=== PATIENT | female | born 1960 | race African-American/Black ===

== ENCOUNTER 2016-04-08 11:26 | Emergency (ER) | payer OTHER ==
[~2016-04-08] VITALS: Ht 170.2 cm; Wt 111.1 kg
[~2016-04-08 11:26] MED LIST: AMOX500C; ATEN25TA PO; ONDA8TAB8 PO; SIMV40TA2 PO; TYLENOL #3
[2016-04-08] MEDS ORDERED: predniSONE 20 MG TAB As Ordered ONE (14:12)
[2016-04-08] MEDS ORDERED: IPRATROPIUM 0.5MG/ALBUTEROL 2.5MG INH SOL UD 3ML (DUONEB)(J7620) As Ordered ONE ×2 (14:21→17:26)
[2016-04-08] MEDS ORDERED: ALBUTEROL SULFATE 2.5 MG/0.5 ML INH NEB SOLN As Ordered ONE (14:21)
[2016-04-08 14:46] LABS: BASO % 0.6 % (0.0-1.0); EOS # 1.5 K/mm3 (0.0-0.50); EOS % 18.4 % (0.0-3.0); LARGE UNSTAINED CELL # 0.2 K/mm3 (0.0-0.4); LARGE UNSTAINED CELL % 2.3 % (0.0-4.0); LYMPH # 2.1 K/mm3 (1.5-4.5); MEAN CORPUSCULAR HEMOGLOBIN 27.9 pg (27.0-33.0); MEAN CORPUSCULAR HGB CONC 30.3 g/dl (32.0-36.5); MEAN CORPUSCULAR VOLUME 92.1 fl (80.0-96.0); MONO # 0.3 K/mm3 (0.0-0.8); MONO % 4.3 % (0.0-5.0); NEUTROPHILS # 3.9 K/mm3 (1.8-7.7); NEUTROPHILS % 48.5 % (36.0-66.0); PLATELET COUNT, AUTOMATED 199 k/mm3 (150-450); RED CELL DISTRIBUTION WIDTH 12.6 % (11.5-14.5)
[2016-04-08 15:07] LABS: ANION GAP 8 MEQ/L (8-16); BLOOD UREA NITROGEN 10 MG/DL (7-18); CALCIUM LEVEL 9.8 MG/DL (8.5-10.1); CARBON DIOXIDE LEVEL 31 MEQ/L (21-32); CHLORIDE LEVEL 102 MEQ/L (98-107); CREATININE FOR GFR 0.91 MG/DL (0.55-1.02); GLOMERULAR FILTRATION RATE > 60.0 (>51); GLUCOSE, FASTING 97 MG/DL (70-105); POTASSIUM SERUM 4.3 MEQ/L (3.5-5.1); SODIUM LEVEL 141 MEQ/L (136-145)
[2016-04-08] MEDS ORDERED: ISOVUE-370 76% 100ML VIAL (Q9967) As Ordered ONE (15:48)
--- NOTE | 2016-04-08 17:35 | REP ---
PA and lateral chest: Comparison is the portable chest of 09/22/2013. There are skin markers anteriorly of uncertain significance, unchanged from the prior study. There are surgical clips in the right axilla. These are unchanged. There is focal interstitial coarsening inferiorly in the right lung, not present previously. This could represent an ensuing infiltrate. No other infiltrates are identified. No pleural effusions. Cardiac size is normal. The quentin, mediastinum, bony thorax unremarkable. Impression: Focal interstitial coarsening inferiorly in the right lung. Bilateral anterior chest wall skin markers. Surgical clips in the right axilla. Signed by Ag Loya MD 04/08/2016 05:26 P
--- NOTE | 2016-04-08 17:40 | REP ---
Bilateral lower extremity deep vein duplex ultrasound: The deep veins demonstrate normal compression, normal Doppler color flow and normal Doppler waveforms with respiration and augmentation at multiple levels from the popliteal veins to the common femoral veins bilaterally. Impression: There is no deep vein thrombus on the right on the left. Signed by Ag Loya MD 04/08/2016 05:31 P
[2016-04-08] MEDS ORDERED: MAGNESIUM SULFATE 1GM/2ML (8MEQ/2ML) VIAL (J3475) IM ONE (18:00)
[2016-04-08] MEDS ORDERED: AZITHROMYCIN 250 MG TAB As Ordered ONE (19:47)
--- NOTE | 2016-04-08 19:58 | EDDOCDS ---
Physician Documentation [facility] Name: Nancy Ortiz Age: 55 yrs Sex: Female : 1960 Arrival Date: 04/08/2016 Time: 11:26 Bed I8 / 16 Private MD: Tanya Kemp A Disposition: 04/08/16 19:26 Discharged to Home/Self Care. Impression: Pneumonia, unspecified organism, Moderate persistent asthma with (acute) exacerbation. - Condition is Stable. - Discharge Instructions: Asthma, Adult, Pneumonia, Adult. - Prescriptions for Prednisone 20 mg Oral Tablet - take 3 tablet by ORAL route once daily for 5 days; 15 tablet. Zithromax 250 mg Oral Tablet - take 1 tablet by ORAL route once daily start tomorrow; 4 tablet. - Work Release Form - 2 day, Medication Reconciliation, Local Pharmacy Hours form. - Follow up: Tanya Kemp; When: Call to arrange an appointment; Reason: Recheck today's complaints, Continuance of care. - Problem is new. - Symptoms have improved. - Notes: Keep hydrated Return to the ED for worsening shortness of breath, fever or chest pain Historical: - Allergies: no known allergies; - Home Meds: 1. Simvastatin Unknown Oral once daily 2. Atenolol Unknown Oral once daily 3. Ventolin HFA 90 mcg/actuation Nebulizer HFAA 2 puffs every 4-6 hours prn 4. meloxicam 7.5 mg oral tab prn - PMHx: Arthritis; Asthma; Hypercholesterolemia; Hypertension; breast cancer; - PSHx: breast reconstruction bilateral; infusaport insertion and removal; Colonoscopy; - Social history: Smoking status: Patient states was never smoker of tobacco. No barriers to communication noted, The patient speaks fluent Djib[place]ian, Speaks appropriately for age. - Family history: Not pertinent. - : The pt / caregiver states he / she is not on anticoagulants. Home medication list is obtained from the patient. - Exposure Risk Screening:: None identified. 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 7 in. (170.18 cm) (R); Pain 0/10; 15:00 BP 153 / 71; Pulse 85; Resp 18; Temp 97.7; Pulse Ox 97% ; Pain 0/10; jam1 16:50 BP 140 / 68; Pulse 84; Resp 20; Temp 98.7; Pulse Ox 99% ; Pain 0/10; jam1 19:45 BP 134 / 69; Pulse 100; Resp 20; Temp 97.3; Pulse Ox 94% ; ajs 11:28 Body Mass Index 38.37 (111.13 kg, 170.18 cm) elp MDM: 14:05 Albuterol 5 mg Nebulizer once ordered. le 14:05 Albuterol-Ipratropium 3 ml Inhalation once ordered. le 14:05 Call Respiratory ordered. le 14:05 predniSONE 60 mg PO once; administer with food or milk ordered. le 14:06 D-Dimer Quant Ordered. EDMS 14:06 CBC with Diff Ordered. EDMS 14:06 BMP Ordered. EDMS 14:08 Call Respiratory complete. kpj 15:32 Financial registration complete. gjb 15:39 [facility] Payment Agreement was scanned into [employer] and attached to record. gjb 15:45 D-Dimer Quant Reviewed. le 15:45 CBC with Diff Reviewed. le 15:45 BMP Reviewed. le 16:42 Chest, 2 View (pa\E\lat) Ordered. EDMS 16:51 Duplex, Ext LOWER veins, bilat Ordered. EDMS 17:20 Albuterol-Ipratropium 3 ml Inhalation once ordered. le 17:20 Magnesium Sulfate 2 grams IM once ordered. le 17:20 Vital Signs ordered. le 17:21 REGULAR+DIET ordered. EDMS 19:21 Duplex, Ext LOWER veins, bilat Reviewed. le 19:22 Chest, 2 View (pa\E\lat) Reviewed. le 19:25 azithromycin 500 mg PO once ordered. le Administered Medications: 14:15 Drug: predniSONE 60 mg [prednisone 20 mg tablet (3 tabs)] Route: PO; [facility] 14:22 Drug: Albuterol 5 mg [albuterol sulfate 2.5 mg/0.5 mL solution for nebulization (1 mL)] ac1 Route: Nebulizer; 14:28 Follow up: wheese bilat on insp. and exp. ac1 14:28 Drug: Albuterol-Ipratropium 3 ml [ipratropium-albuterol 0.5 mg-3 mg(2.5 mg base)/3 mL ac1 nebulization soln (3 mL)] Route: Inhalation; 14:33 Follow up: insp,exp wheezes bilat ac1 17:26 Drug: Albuterol-Ipratropium 3 ml [ipratropium-albuterol 0.5 mg-3 mg(2.5 mg base)/3 mL ac1 nebulization soln (3 mL)] Route: Inhalation; 17:34 Follow up: sxp wheezes bilat ac1 18:26 Drug: Magnesium Sulfate 2 grams [magnesium sulfate 4 mEq/mL (50 %) injection syringe (2 mcp grams)] Route: IM; Site: left gluteus; 19:55 Drug: azithromycin 500 mg [azithromycin 250 mg tablet (2 tabs)] Route: PO; cz Signatures: Dispatcher [employer] EDTanya Martin RN RN kpj Michelson, Staci, RN RN srm Zecher, Calvin, RN RN cz Westcott, Lisa, Sandra Nelson Mary RN mcp Cowles, Ammy RT ac1 The chart was reviewed and I authenticate all verbal orders and agree with the evaluation and treatment provided.Corrections: (The following items were deleted from the chart) 16:42 15:45 IV Saline Lock ordered. scarlet cronin 16:51 16:42 Duplex, Ext,LOWER veins,unilat+US ordered. EDMS EDMS 16:55 15:46 CT ANGIO CHEST+CT ordered. EDMS EDMS Attachments: 15:39 [facility] Payment Agreement [facility]
--- NOTE | 2016-04-08 19:58 | EDDOCDS ---
Nurse's Notes [facility] Name: Nancy Ortiz Age: 55 yrs Sex: Female : 1960 Arrival Date: 04/08/2016 Time: 11:26 Bed I8 / 16 Private MD: Tanya Kemp A Diagnosis: Pneumonia, unspecified organism;Moderate persistent asthma with (acute) exacerbation Presentation: 04/08 11:30 Adult Sepsis Screening: The patient does not have new or worsening altered mentation. srm Patient's respiratory rate is less than 22. Systolic blood pressure is greater than 100. Patient has a qSOFA score of 0- Negative Sepsis Screen. Suicide/Homicide risk assessment- the patient denies having any suicidal and/or homicidal ideations and does not present with any other emotional, behavioral or mental health complaints. Status: Patient is not a transportation services representative or dependent. Transition of care: Patient was received from [facility]. 11:30 Acuity: GOMEZ Level 4 [facility] 11:30 Method Of Arrival: Walkin/Carried/Asstd [facility] Triage Assessment: 11:34 General: Appears in no apparent distress, Behavior is appropriate for age, cooperative. [facility] Pain: Denies pain. 11:34 HIV screening NA for this visit Offered previously. 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 Simvastatin Unknown Oral once daily 2. Atenolol Unknown Oral once daily 3. Ventolin HFA 90 mcg/actuation Nebulizer HFAA 2 puffs every 4-6 hours prn 4. meloxicam 7.5 mg oral tab prn - PMHx: Arthritis; Asthma; Hypercholesterolemia; Hypertension; breast cancer; - PSHx: breast reconstruction bilateral; infusaport insertion and removal; Colonoscopy; - Social history: Smoking status: Patient states was never smoker of tobacco. No barriers to communication noted, The patient speaks fluent Guamanian, Speaks appropriately for age. - Family history: Not pertinent. - : The pt / caregiver states he / she is not on anticoagulants. Home medication list is obtained from the patient. - Exposure Risk Screening:: None identified. Screenin:50 Screening information is obtained from the patient. Fall risk: No risks identified. [facility] Assistance ADL's: requires no assistance with activities of daily living. Abuse/DV Screen: The patient / caregiver reports he/she is: not in a situation that causes fear, pain or injury. Nutritional screening: No deficits noted. Advance Directives: Currently, there is no health care proxy. There is no active DNR order. There is no living will. There is no Power of Supervisor Of Operations. Advance directive information has not previously been placed in an [facility] medical record. Further advance directive information is declined. home support is adequate. Assessment: 13:50 General: Appears uncomfortable, well nourished, well groomed, Behavior is appropriate [facility] for age, pleasant. Pain: Denies pain. Neurological: Level of Consciousness is awake, alert, Oriented to person, place, time. EENT: Oral mucosa is dry. lips dry. Cardiovascular: Chest pain is denied. Respiratory: Airway is patent Respiratory effort is labored, shallow, Respiratory pattern is regular, symmetrical, Sputum is thick, clear Breath sounds with wheezes inspiratory expiratory bilaterally. the patient has mild shortness of breath. Derm: Skin is pink, warm & dry. 15:00 General: Appears comfortable, Behavior is appropriate for age. General: HOB elevated kpj lights dimmed. Pain: Denies pain. Respiratory: Airway is patent Respiratory effort is even, unlabored, Respiratory pattern is regular, symmetrical, Breath sounds with wheezes inspiratory expiratory bilaterally. pt states feeling better, denies chest pain. 16:00 General: Appears comfortable, Behavior is appropriate for age, pleasant. Pain: Denies j pain. Neurological: Level of Consciousness is awake, alert, Oriented to person, place, time. Cardiovascular: Chest pain is denied. Respiratory: Airway is patent Respiratory effort is even, unlabored, Breath sounds with wheezes inspiratory expiratory bilaterally. Reports cough that is white phlegm. Derm: Skin is pink, warm & dry. 17:10 General: Appears comfortable, Behavior is appropriate for age, pleasant, Reports she is kpj hungry. Pain: Denies pain. Neurological: Level of Consciousness is awake, alert, Oriented to person, place, time. EENT: Oral mucosa is dry. lips dry. Cardiovascular: Chest pain is denied. Respiratory: Airway is patent Respiratory effort is even, unlabored, Respiratory pattern is regular, speech not interrupted with respiratory effort. Breath sounds with wheezes inspiratory expiratory moving more air. Derm: Skin is pink, warm & dry. 18:00 Reassessment: Patient appears in no apparent distress at this time. Patient states kpj feeling better. Patient states symptoms have improved. General: Appears comfortable. Derm: Skin is pink, warm & dry. 19:07 General: Appears in no apparent distress, comfortable. Cardiovascular: Chest pain is kpj denied. Respiratory: Breath sounds with wheezes inspiratory expiratory bilaterally. 19:18 General: Appears in no apparent distress, comfortable, Behavior is appropriate for age, ttb cooperative, pleasant. Pain: Denies pain. Neurological: Level of Consciousness is awake, alert, Oriented to person, place, time. Cardiovascular: Heart tones S1 S2 present Chest pain is denied. Respiratory: Airway is patent Respiratory effort is even, unlabored, Respiratory pattern is regular, symmetrical, Breath sounds with wheezes inspiratory expiratory bilaterally. pt states very improved since arrival. the patient has mild shortness of breath Denies shortness of breath. GI: Denies nausea, vomiting, pain. Derm: Skin is normal. Vital Signs: 11:28 BP 156 / 70; Pulse 74; Resp 20; Temp 98.9(O); Pulse Ox 98% on R/A; Weight 111.13 kg elp (R); Height 5 ft. 7 in. (170.18 cm) (R); Pain 0/10; 15:00 BP 153 / 71; Pulse 85; Resp 18; Temp 97.7; Pulse Ox 97% ; Pain 0/10; jam1 16:50 BP 140 / 68; Pulse 84; Resp 20; Temp 98.7; Pulse Ox 99% ; Pain 0/10; jam1 19:45 BP 134 / 69; Pulse 100; Resp 20; Temp 97.3; Pulse Ox 94% ; ajs 11:28 Body Mass Index 38.37 (111.13 kg, 170.18 cm) [facility] Vitals: 11:28 Log In Time: April 08, 2016 at 11:25. [facility] ED Course: 11:27 Patient visited by Brenda Saavedra PCA. elp 11:27 Tanya Kemp is Private Physician. elp 11:27 Patient moved to Waiting elp 11:28 Patient visited by Brenda Saavedra PCA. elp 11:28 Patient moved to Pre RCE elp 11:31 Triage Initiated srm 13:11 Patient moved to I8 / 16 srm 13:12 [facility] Hardy FNP [facility] le 13:50 Resting quietly. kpj 13:50 The patient / caregiver is instructed regarding the plan of care and ED course. Patient [facility] has correct armband on for positive identification. Door closed. Head of bed Elevated. 13:52 Patient visited by Juanis Hardy FNP. le 13:54 Patient visited by Juanis Hardy FNP. le 15:39 [facility] Payment Agreement was scanned into [employer] and attached to record. gjb 16:00 Resting quietly. Awaiting disposition. [facility] 16:00 Door closed. Noise minimized. Lights dimmed. Warm blanket given. left arm wrapped in [facility] warm blanket Head of bed elevated. 16:00 Missed attempts: 20 gauge X 2 in left antecubital area, unable to obtain IV access left [facility] AC , unable to use rt arm due to node dissection. 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 16:30 Missed attempts: 20 gauge X 1 in left antecubital area, by Juanis SORIANO. kpj 16:51 Patient moved to Ultrasound [facility] 17:10 Resting quietly. Waiting for radiology results. j 17:10 The patient / caregiver is instructed regarding the plan of care and ED course. Diet: [facility] regular meal ordered.. 17:11 Patient moved to I8 / 16 [facility] 18:16 Chest, 2 View (pa\E\lat) Returned. EDMS 18:16 Duplex, Ext LOWER veins, bilat Returned. EDMS 19:14 Patient visited by Rylee Jaime RN. ttb 19:20 Patient visited by Rylee Jaime RN. ttb 19:26 Tanya Kemp is Referral Physician. le 19:45 Patient visited by Lucía Patel. ajs Administered Medications: 14:15 Drug: predniSONE 60 mg [prednisone 20 mg tablet (3 tabs)] Route: PO; kpj 14:22 Drug: Albuterol 5 mg [albuterol sulfate 2.5 mg/0.5 mL solution for nebulization (1 mL)] ac1 Route: Nebulizer; 14:28 Follow up: wheese bilat on insp. and exp. ac1 14:28 Drug: Albuterol-Ipratropium 3 ml [ipratropium-albuterol 0.5 mg-3 mg(2.5 mg base)/3 mL ac1 nebulization soln (3 mL)] Route: Inhalation; 14:33 Follow up: insp,exp wheezes bilat ac1 17:26 Drug: Albuterol-Ipratropium 3 ml [ipratropium-albuterol 0.5 mg-3 mg(2.5 mg base)/3 mL ac1 nebulization soln (3 mL)] Route: Inhalation; 17:34 Follow up: sxp wheezes bilat ac1 18:26 Drug: Magnesium Sulfate 2 grams [magnesium sulfate 4 mEq/mL (50 %) injection syringe (2 mcp grams)] Route: IM; Site: left gluteus; 19:55 Drug: azithromycin 500 mg [azithromycin 250 mg tablet (2 tabs)] Route: PO; cz Intake: RT: 14:20 Initial Med Neb Given as ordered Patient was instructed and evaluated on procedure. ac1 14:27 Respiratory: Breath sounds with wheezes bilaterally. ac1 14:28 Subsequent Med Neb Given as ordered. ac1 14:34 Respiratory: Breath sounds with wheezes bilaterally. at expiration at inspiration. ac1 17:28 Subsequent Med Neb Given as ordered. ac1 17:36 Respiratory: Breath sounds with wheezes bilaterally. ac1 Order Results: Lab Order: D-Dimer Quant; SPEC'M 04/08/16 14:31 Test: D-DIMER QUANT; Value: 866.7; Range: <500; Abnormal: Above high normal; Units: ng/ml; Status: F Lab Order: CBC with Diff; SPEC'M 04/08/16 14:31 Test: WHITE BLOOD COUNT; Value: 8.0; Range: 4.0-10.0; Units: K/mm3; Status: F Test: RED BLOOD COUNT; Value: 4.46; Range: 4.00-5.40; Units: M/mm3; Status: F Test: HEMOGLOBIN; Value: 12.5; Range: 12.0-16.0; Units: g/dl; Status: F Test: HEMATOCRIT; Value: 41.1; Range: 36.0-47.0; Units: %; Status: F Test: MEAN CORPUSCULAR VOLUME; Value: 92.1; Range: 80.0-96.0; Units: fl; Status: F Test: MEAN CORPUSCULAR HEMOGLOBIN; Value: 27.9; Range: 27.0-33.0; Units: pg; Status: F Test: MEAN CORPUSCULAR HGB CONC; Value: 30.3; Range: 32.0-36.5; Abnormal: Below low normal; Units: g/dl; Status: F Test: RED CELL DISTRIBUTION WIDTH; Value: 12.6; Range: 11.5-14.5; Units: %; Status: F Test: PLATELET COUNT, AUTOMATED; Value: 199; Range: 150-450; Units: k/mm3; Status: F Test: NEUTROPHILS %; Value: 48.5; Range: 36.0-66.0; Units: %; Status: F Test: LYMPH %; Value: 26.0; Range: 24.0-44.0; Units: %; Status: F Test: MONO %; Value: 4.3; Range: 0.0-5.0; Units: %; Status: F Test: EOS %; Value: 18.4; Range: 0.0-3.0; Abnormal: Above high normal; Units: %; Status: F Test: BASO %; Value: 0.6; Range: 0.0-1.0; Units: %; Status: F Test: LARGE UNSTAINED CELL %; Value: 2.3; Range: 0.0-4.0; Units: %; Status: F Test: NEUTROPHILS #; Value: 3.9; Range: 1.8-7.7; Units: K/mm3; Status: F Test: LYMPH #; Value: 2.1; Range: 1.5-4.5; Units: K/mm3; Status: F Test: MONO #; Value: 0.3; Range: 0.0-0.8; Units: K/mm3; Status: F Test: EOS #; Value: 1.5; Range: 0.0-0.50; Abnormal: Above high normal; Units: K/mm3; Status: F Test: BASO #; Value: 0.0; Range: 0.0-0.2; Units: K/mm3; Status: F Test: LARGE UNSTAINED CELL #; Value: 0.2; Range: 0.0-0.4; Units: K/mm3; Status: F Lab Order: BMP; SPEC'M 04/08/16 14:31 Test: GLUCOSE, FASTING; Value: 97; Range: 70-105; Units: MG/DL; Status: F Test: BLOOD UREA NITROGEN; Value: 10; Range: 7-18; Units: MG/DL; Status: F Test: CREATININE FOR GFR; Value: 0.91; Range: 0.55-1.02; Units: MG/DL; Status: F Test: GLOMERULAR FILTRATION RATE; Value: > 60.0; Range: >51; Status: F Test: SODIUM LEVEL; Value: 141; Range: 136-145; Units: MEQ/L; Status: F Test: POTASSIUM SERUM; Value: 4.3; Range: 3.5-5.1; Units: MEQ/L; Status: F Test: CHLORIDE LEVEL; Value: 102; Range: 98-107; Units: MEQ/L; Status: F Test: CARBON DIOXIDE LEVEL; Value: 31; Range: 21-32; Units: MEQ/L; Status: F Test: ANION GAP; Value: 8; Range: 8-16; Units: MEQ/L; Status: F Test: CALCIUM LEVEL; Value: 9.8; Range: 8.5-10.1; Units: MG/DL; Status: F Test Note: ; Units are mL/min/1.73 m2 Chronic Kidney Disease Staging per NKF: Stage I & II GFR >=60 Normal to Mildly Decreased Stage III GFR 30-59 Moderately Decreased Stage IV GFR 15-29 Severely Decreased Stage V GFR <15 Very Little GFR Left ESRD GFR <15 on 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 These are unchanged.; ; There is focal interstitial coarsening inferiorly in the right lung, not present; previously. This could represent an ensuing infiltrate.; ; No other infiltrates are identified. No pleural effusions. Cardiac size is; normal. The quentin, mediastinum, bony thorax unremarkable.; ; Impression:; ; Focal interstitial coarsening inferiorly in the right lung.; ; Bilateral anterior chest wall skin markers. Surgical clips in the right axilla.; ; ; Signed by; Ag Loya MD 04/08/2016 05:26 P; Radiology Order: Duplex, Ext LOWER veins, bilat Test: Duplex, Ext LOWER veins, bilat REASON FOR EXAMINATION: elev d-dimer, SOB; Bilateral lower extremity deep vein duplex ultrasound:; ; The deep veins demonstrate normal compression, normal Doppler color flow and; normal Doppler waveforms with respiration and augmentation at multiple levels; from the popliteal veins to the common femoral veins bilaterally.; ; Impression:; ; There is no deep vein thrombus on the right on the left.; ; ; Signed by; Ag Loya MD 04/08/2016 05:31 P; Outcome: 19:26 Discharge ordered by Provider. le 19:56 Discharge Assessment: Patient awake, alert and oriented x 3. No cognitive and/or cz functional deficits noted. Patient verbalized understanding of disposition instructions. patient administered narcotics - no. The following High Risk Discharge criteria are identified: None. Discharged to home via wheelchair. Condition: stable. Discharge instructions given to patient, Instructed on discharge instructions, follow up and referral plans. medication usage, Demonstrated understanding of instructions, medications, Pt was receptive of discharge instructions/ teaching. Prescriptions given X 2. Property :Personal belongings accompany Pt. 19:56 Ultrasound Study completed. cz 19:57 Patient left the ED. Signatures: Dispatcher [employer] EDMS Tanya Webster RN RN kpj Michelson, Staci, RN RN srm Peters, Mary, RN RN mcp Zecher, Calvin, RN RN cz Murphy, Jane, FLYER BUILDER FLYER BUILDER [email or web address] Ammy Dominique,RT RT ac1 Juanis Hardy, ENDLESS STEAMER TENDER ENDLESS STEAMER TENDER Lucía Constantino Huy hgl Conner, Teresa, RN RN ttb Patchen, Erin, FLYER BUILDER FLYER BUILDER elp Sandra Tristan MTDD
--- NOTE | 2016-04-10 20:57 | EDDOCDS ---
Physician Documentation [facility] Name: Nancy Ortiz Age: 55 yrs Sex: Female : 1960 Arrival Date: 04/08/2016 Time: 11:26 Bed I8 / 16 Private MD: Tanya Kemp A Disposition: 04/08/16 19:26 Discharged to Home/Self Care. Impression: Pneumonia, unspecified organism, Moderate persistent asthma with (acute) exacerbation. - Condition is Stable. - Discharge Instructions: Asthma, Adult, Pneumonia, Adult. - Prescriptions for Prednisone 20 mg Oral Tablet - take 3 tablet by ORAL route once daily for 5 days; 15 tablet. Zithromax 250 mg Oral Tablet - take 1 tablet by ORAL route once daily start tomorrow; 4 tablet. - Work Release Form - 2 day, Medication Reconciliation, Local Pharmacy Hours form. - Follow up: Tanya Kemp; When: Call to arrange an appointment; Reason: Recheck today's complaints, Continuance of care. - Problem is new. - Symptoms have improved. - Notes: Keep hydrated Return to the ED for worsening shortness of breath, fever or chest pain Historical: - Allergies: no known allergies; - Home Meds: 1. Simvastatin Unknown Oral once daily 2. Atenolol Unknown Oral once daily 3. Ventolin HFA 90 mcg/actuation Nebulizer HFAA 2 puffs every 4-6 hours prn 4. meloxicam 7.5 mg oral tab prn - PMHx: Arthritis; Asthma; Hypercholesterolemia; Hypertension; breast cancer; - PSHx: breast reconstruction bilateral; infusaport insertion and removal; Colonoscopy; - Social history: Smoking status: Patient states was never smoker of tobacco. No barriers to communication noted, The patient speaks fluent Lebanese, Speaks appropriately for age. - Family history: Not pertinent. - : The pt / caregiver states he / she is not on anticoagulants. Home medication list is obtained from the patient. - Exposure Risk Screening:: None identified. 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 7 in. (170.18 cm) (R); Pain 0/10; 15:00 BP 153 / 71; Pulse 85; Resp 18; Temp 97.7; Pulse Ox 97% ; Pain 0/10; jam1 16:50 BP 140 / 68; Pulse 84; Resp 20; Temp 98.7; Pulse Ox 99% ; Pain 0/10; jam1 19:45 BP 134 / 69; Pulse 100; Resp 20; Temp 97.3; Pulse Ox 94% ; ajs 11:28 Body Mass Index 38.37 (111.13 kg, 170.18 cm) elp MDM: 14:05 Albuterol 5 mg Nebulizer once ordered. le 14:05 Albuterol-Ipratropium 3 ml Inhalation once ordered. le 14:05 Call Respiratory ordered. le 14:05 predniSONE 60 mg PO once; administer with food or milk ordered. le 14:06 D-Dimer Quant Ordered. EDMS 14:06 CBC with Diff Ordered. EDMS 14:06 BMP Ordered. EDMS 14:08 Call Respiratory complete. kpj 15:32 Financial registration complete. gjb 15:39 [facility] Payment Agreement was scanned into [employer] and attached to record. gjb 15:45 D-Dimer Quant Reviewed. le 15:45 CBC with Diff Reviewed. le 15:45 BMP Reviewed. le 16:42 Chest, 2 View (pa\E\lat) Ordered. EDMS 16:51 Duplex, Ext LOWER veins, bilat Ordered. EDMS 17:20 Albuterol-Ipratropium 3 ml Inhalation once ordered. le 17:20 Magnesium Sulfate 2 grams IM once ordered. le 17:20 Vital Signs ordered. le 17:21 REGULAR+DIET ordered. EDMS 19:21 Duplex, Ext LOWER veins, bilat Reviewed. le 19:22 Chest, 2 View (pa\E\lat) Reviewed. le 19:25 azithromycin 500 mg PO once ordered. le 04/09 11:39 T-Sheet-- Draft Copy was scanned into [employer] and attached to record. gb Administered Medications: 04/08 14:15 Drug: predniSONE 60 mg [prednisone 20 mg tablet (3 tabs)] Route: PO; [facility] 14:22 Drug: Albuterol 5 mg [albuterol sulfate 2.5 mg/0.5 mL solution for nebulization (1 mL)] ac1 Route: Nebulizer; 14:28 Follow up: wheese bilat on insp. and exp. ac1 14:28 Drug: Albuterol-Ipratropium 3 ml [ipratropium-albuterol 0.5 mg-3 mg(2.5 mg base)/3 mL ac1 nebulization soln (3 mL)] Route: Inhalation; 14:33 Follow up: insp,exp wheezes bilat ac1 17:26 Drug: Albuterol-Ipratropium 3 ml [ipratropium-albuterol 0.5 mg-3 mg(2.5 mg base)/3 mL ac1 nebulization soln (3 mL)] Route: Inhalation; 17:34 Follow up: sxp wheezes bilat ac1 18:26 Drug: Magnesium Sulfate 2 grams [magnesium sulfate 4 mEq/mL (50 %) injection syringe (2 mcp grams)] Route: IM; Site: left gluteus; 19:55 Drug: azithromycin 500 mg [azithromycin 250 mg tablet (2 tabs)] Route: PO; cz Signatures: Dispatcher [employer] EDTanya Martin RN RN kpj Michelson, Staci, RN RN srm Zecher, Calvin, SHILOH RN cz Sulema Cho, Reg Reg Juanis Mooney, Sandra Nelson Mary RN mcp Cowles, Ammy RT ac1 The chart was reviewed and I authenticate all verbal orders and agree with the evaluation and treatment provided.Corrections: (The following items were deleted from the chart) 16:42 15:45 IV Saline Lock ordered. scarlet cronin 16:51 16:42 Duplex, Ext,LOWER veins,unilat+US ordered. EDMS EDMS 16:55 15:46 CT ANGIO CHEST+CT ordered. EDMS EDMS Attachments: 15:39 [facility] Payment Agreement ying 04/09 11:39 T-Sheet-- Draft Copy gb Chart Complete MTDD
--- NOTE | 2016-04-10 20:57 | EDDOCDS ---
Nurse's Notes [facility] Name: Nancy Ortiz Age: 55 yrs Sex: Female : 1960 Arrival Date: 04/08/2016 Time: 11:26 Bed I8 / 16 Private MD: Tanya Kemp A Diagnosis: Pneumonia, unspecified organism;Moderate persistent asthma with (acute) exacerbation Presentation: 04/08 11:30 Adult Sepsis Screening: The patient does not have new or worsening altered mentation. srm Patient's respiratory rate is less than 22. Systolic blood pressure is greater than 100. Patient has a qSOFA score of 0- Negative Sepsis Screen. Suicide/Homicide risk assessment- the patient denies having any suicidal and/or homicidal ideations and does not present with any other emotional, behavioral or mental health complaints. 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 Transition of care: Patient was received from [facility]. 11:30 Acuity: GOMEZ Level 4 [facility] 11:30 Method Of Arrival: Walkin/Carried/Asstd [facility] Triage Assessment: 11:34 General: Appears in no apparent distress, Behavior is appropriate for age, cooperative. [facility] Pain: Denies pain. 11:34 HIV screening NA for this visit Offered previously. 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 Simvastatin Unknown Oral once daily 2. Atenolol Unknown Oral once daily 3. Ventolin HFA 90 mcg/actuation Nebulizer HFAA 2 puffs every 4-6 hours prn 4. meloxicam 7.5 mg oral tab prn - PMHx: Arthritis; Asthma; Hypercholesterolemia; Hypertension; breast cancer; - PSHx: breast reconstruction bilateral; infusaport insertion and removal; Colonoscopy; - Social history: Smoking status: Patient states was never smoker of tobacco. No barriers to communication noted, The patient speaks fluent Fijian, Speaks appropriately for age. - Family history: Not pertinent. - : The pt / caregiver states he / she is not on anticoagulants. Home medication list is obtained from the patient. - Exposure Risk Screening:: None identified. Screenin:50 Screening information is obtained from the patient. Fall risk: No risks identified. [facility] Assistance ADL's: requires no assistance with activities of daily living. Abuse/DV Screen: The patient / caregiver reports he/she is: not in a situation that causes fear, pain or injury. Nutritional screening: No deficits noted. Advance Directives: Currently, there is no health care proxy. There is no active DNR order. There is no living will. There is no Power of Assistant Farm Operations Manager. Advance directive information has not previously been placed in an [facility] medical record. Further advance directive information is declined. home support is adequate. Assessment: 13:50 General: Appears uncomfortable, well nourished, well groomed, Behavior is appropriate [facility] for age, pleasant. Pain: Denies pain. Neurological: Level of Consciousness is awake, alert, Oriented to person, place, time. EENT: Oral mucosa is dry. lips dry. Cardiovascular: Chest pain is denied. Respiratory: Airway is patent Respiratory effort is labored, shallow, Respiratory pattern is regular, symmetrical, Sputum is thick, clear Breath sounds with wheezes inspiratory expiratory bilaterally. the patient has mild shortness of breath. Derm: Skin is pink, warm & dry. 15:00 General: Appears comfortable, Behavior is appropriate for age. General: HOB elevated kpj lights dimmed. Pain: Denies pain. Respiratory: Airway is patent Respiratory effort is even, unlabored, Respiratory pattern is regular, symmetrical, Breath sounds with wheezes inspiratory expiratory bilaterally. pt states feeling better, denies chest pain. 16:00 General: Appears comfortable, Behavior is appropriate for age, pleasant. Pain: Denies j pain. Neurological: Level of Consciousness is awake, alert, Oriented to person, place, time. Cardiovascular: Chest pain is denied. Respiratory: Airway is patent Respiratory effort is even, unlabored, Breath sounds with wheezes inspiratory expiratory bilaterally. Reports cough that is white phlegm. Derm: Skin is pink, warm & dry. 17:10 General: Appears comfortable, Behavior is appropriate for age, pleasant, Reports she is kpj hungry. Pain: Denies pain. Neurological: Level of Consciousness is awake, alert, Oriented to person, place, time. EENT: Oral mucosa is dry. lips dry. Cardiovascular: Chest pain is denied. Respiratory: Airway is patent Respiratory effort is even, unlabored, Respiratory pattern is regular, speech not interrupted with respiratory effort. Breath sounds with wheezes inspiratory expiratory moving more air. Derm: Skin is pink, warm & dry. 18:00 Reassessment: Patient appears in no apparent distress at this time. Patient states kpj feeling better. Patient states symptoms have improved. General: Appears comfortable. Derm: Skin is pink, warm & dry. 19:07 General: Appears in no apparent distress, comfortable. Cardiovascular: Chest pain is kpj denied. Respiratory: Breath sounds with wheezes inspiratory expiratory bilaterally. 19:18 General: Appears in no apparent distress, comfortable, Behavior is appropriate for age, ttb cooperative, pleasant. Pain: Denies pain. Neurological: Level of Consciousness is awake, alert, Oriented to person, place, time. Cardiovascular: Heart tones S1 S2 present Chest pain is denied. Respiratory: Airway is patent Respiratory effort is even, unlabored, Respiratory pattern is regular, symmetrical, Breath sounds with wheezes inspiratory expiratory bilaterally. pt states very improved since arrival. the patient has mild shortness of breath Denies shortness of breath. GI: Denies nausea, vomiting, pain. Derm: Skin is normal. Vital Signs: 11:28 BP 156 / 70; Pulse 74; Resp 20; Temp 98.9(O); Pulse Ox 98% on R/A; Weight 111.13 kg elp (R); Height 5 ft. 7 in. (170.18 cm) (R); Pain 0/10; 15:00 BP 153 / 71; Pulse 85; Resp 18; Temp 97.7; Pulse Ox 97% ; Pain 0/10; jam1 16:50 BP 140 / 68; Pulse 84; Resp 20; Temp 98.7; Pulse Ox 99% ; Pain 0/10; jam1 19:45 BP 134 / 69; Pulse 100; Resp 20; Temp 97.3; Pulse Ox 94% ; ajs 11:28 Body Mass Index 38.37 (111.13 kg, 170.18 cm) [facility] Vitals: 11:28 Log In Time: April 08, 2016 at 11:25. [facility] ED Course: 11:27 Patient visited by Brenda Saavedra PCA. elp 11:27 Tanya Kemp is Private Physician. elp 11:27 Patient moved to Waiting elp 11:28 Patient visited by Brenda Saavedra PCA. elp 11:28 Patient moved to Pre RCE elp 11:31 Triage Initiated srm 13:11 Patient moved to I8 / 16 srm 13:12 [facility] F[facility] le 13:50 Resting quietly. kpj 13:50 The patient / caregiver is instructed regarding the plan of care and ED course. Patient [facility] has correct armband on for positive identification. Door closed. Head of bed Elevated. 13:52 Patient visited by Juanis Hardy FNP. le 13:54 Patient visited by Juanis Hardy FNP. le 15:39 [facility] Payment Agreement was scanned into [employer] and attached to record. gjb 16:00 Resting quietly. Awaiting disposition. [facility] 16:00 Door closed. Noise minimized. Lights dimmed. Warm blanket given. left arm wrapped in [facility] warm blanket Head of bed elevated. 16:00 Missed attempts: 20 gauge X 2 in left antecubital area, unable to obtain IV access left [facility] AC , unable to use rt arm due to node dissection. Juanis SORIANO aware conventional underwriter unable to start IV.. 16:30 Missed attempts: 20 gauge X 1 in left antecubital area, by Juanis SORIANO. kpj 16:51 Patient moved to Ultrasound [facility] 17:10 Resting quietly. Waiting for radiology results. [facility] 17:10 The patient / caregiver is instructed regarding the plan of care and ED course. Diet: [facility] regular meal ordered.. 17:11 Patient moved to I8 / 16 [facility] 18:16 Chest, 2 View (pa\E\lat) Returned. EDMS 18:16 Duplex, Ext LOWER veins, bilat Returned. EDMS 19:14 Patient visited by Rylee Jaime RN. ttb 19:20 Patient visited by Rylee Jaime RN. ttb 19:26 Tanya Kemp is Referral Physician. le 19:45 Patient visited by Lucía Patel. ajs 04/09 11:39 T-Sheet-- Draft Copy was scanned into [employer] and attached to record. gb Administered Medications: 04/08 14:15 Drug: predniSONE 60 mg [prednisone 20 mg tablet (3 tabs)] Route: PO; kpj 14:22 Drug: Albuterol 5 mg [albuterol sulfate 2.5 mg/0.5 mL solution for nebulization (1 mL)] ac1 Route: Nebulizer; 14:28 Follow up: wheese bilat on insp. and exp. ac1 14:28 Drug: Albuterol-Ipratropium 3 ml [ipratropium-albuterol 0.5 mg-3 mg(2.5 mg base)/3 mL ac1 nebulization soln (3 mL)] Route: Inhalation; 14:33 Follow up: insp,exp wheezes bilat ac1 17:26 Drug: Albuterol-Ipratropium 3 ml [ipratropium-albuterol 0.5 mg-3 mg(2.5 mg base)/3 mL ac1 nebulization soln (3 mL)] Route: Inhalation; 17:34 Follow up: sxp wheezes bilat ac1 18:26 Drug: Magnesium Sulfate 2 grams [magnesium sulfate 4 mEq/mL (50 %) injection syringe (2 mcp grams)] Route: IM; Site: left gluteus; 19:55 Drug: azithromycin 500 mg [azithromycin 250 mg tablet (2 tabs)] Route: PO; cz Intake: RT: 14:20 Initial Med Neb Given as ordered Patient was instructed and evaluated on procedure. ac1 14:27 Respiratory: Breath sounds with wheezes bilaterally. ac1 14:28 Subsequent Med Neb Given as ordered. ac1 14:34 Respiratory: Breath sounds with wheezes bilaterally. at expiration at inspiration. ac1 17:28 Subsequent Med Neb Given as ordered. ac1 17:36 Respiratory: Breath sounds with wheezes bilaterally. ac1 Order Results: Lab Order: D-Dimer Quant; SPEC'M 04/08/16 14:31 Test: D-DIMER QUANT; Value: 866.7; Range: <500; Abnormal: Above high normal; Units: ng/ml; Status: F Lab Order: CBC with Diff; SPEC'M 04/08/16 14:31 Test: WHITE BLOOD COUNT; Value: 8.0; Range: 4.0-10.0; Units: K/mm3; Status: F Test: RED BLOOD COUNT; Value: 4.46; Range: 4.00-5.40; Units: M/mm3; Status: F Test: HEMOGLOBIN; Value: 12.5; Range: 12.0-16.0; Units: g/dl; Status: F Test: HEMATOCRIT; Value: 41.1; Range: 36.0-47.0; Units: %; Status: F Test: MEAN CORPUSCULAR VOLUME; Value: 92.1; Range: 80.0-96.0; Units: fl; Status: F Test: MEAN CORPUSCULAR HEMOGLOBIN; Value: 27.9; Range: 27.0-33.0; Units: pg; Status: F Test: MEAN CORPUSCULAR HGB CONC; Value: 30.3; Range: 32.0-36.5; Abnormal: Below low normal; Units: g/dl; Status: F Test: RED CELL DISTRIBUTION WIDTH; Value: 12.6; Range: 11.5-14.5; Units: %; Status: F Test: PLATELET COUNT, AUTOMATED; Value: 199; Range: 150-450; Units: k/mm3; Status: F Test: NEUTROPHILS %; Value: 48.5; Range: 36.0-66.0; Units: %; Status: F Test: LYMPH %; Value: 26.0; Range: 24.0-44.0; Units: %; Status: F Test: MONO %; Value: 4.3; Range: 0.0-5.0; Units: %; Status: F Test: EOS %; Value: 18.4; Range: 0.0-3.0; Abnormal: Above high normal; Units: %; Status: F Test: BASO %; Value: 0.6; Range: 0.0-1.0; Units: %; Status: F Test: LARGE UNSTAINED CELL %; Value: 2.3; Range: 0.0-4.0; Units: %; Status: F Test: NEUTROPHILS #; Value: 3.9; Range: 1.8-7.7; Units: K/mm3; Status: F Test: LYMPH #; Value: 2.1; Range: 1.5-4.5; Units: K/mm3; Status: F Test: MONO #; Value: 0.3; Range: 0.0-0.8; Units: K/mm3; Status: F Test: EOS #; Value: 1.5; Range: 0.0-0.50; Abnormal: Above high normal; Units: K/mm3; Status: F Test: BASO #; Value: 0.0; Range: 0.0-0.2; Units: K/mm3; Status: F Test: LARGE UNSTAINED CELL #; Value: 0.2; Range: 0.0-0.4; Units: K/mm3; Status: F Lab Order: [facility]; SPEC'M 04/08/16 14:31 Test: GLUCOSE, FASTING; Value: 97; Range: 70-105; Units: MG/DL; Status: F Test: BLOOD UREA NITROGEN; Value: 10; Range: 7-18; Units: MG/DL; Status: F Test: CREATININE FOR GFR; Value: 0.91; Range: 0.55-1.02; Units: MG/DL; Status: F Test: GLOMERULAR FILTRATION RATE; Value: > 60.0; Range: >51; Status: F Test: SODIUM LEVEL; Value: 141; Range: 136-145; Units: MEQ/L; Status: F Test: POTASSIUM SERUM; Value: 4.3; Range: 3.5-5.1; Units: MEQ/L; Status: F Test: CHLORIDE LEVEL; Value: 102; Range: 98-107; Units: MEQ/L; Status: F Test: CARBON DIOXIDE LEVEL; Value: 31; Range: 21-32; Units: MEQ/L; Status: F Test: ANION GAP; Value: 8; Range: 8-16; Units: MEQ/L; Status: F Test: CALCIUM LEVEL; Value: 9.8; Range: 8.5-10.1; Units: MG/DL; Status: F Test Note: ; Units are mL/min/1.73 m2 Chronic Kidney Disease Staging per NKF: Stage I & II GFR >=60 Normal to Mildly Decreased Stage III GFR 30-59 Moderately Decreased Stage IV GFR 15-29 Severely Decreased Stage V GFR <15 Very Little GFR Left ESRD GFR <15 on 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 These are unchanged.; ; There is focal interstitial coarsening inferiorly in the right lung, not present; previously. This could represent an ensuing infiltrate.; ; No other infiltrates are identified. No pleural effusions. Cardiac size is; normal. The quentin, mediastinum, bony thorax unremarkable.; ; Impression:; ; Focal interstitial coarsening inferiorly in the right lung.; ; Bilateral anterior chest wall skin markers. Surgical clips in the right axilla.; ; ; Signed by; Ag Loya MD 04/08/2016 05:26 P; Radiology Order: Duplex, Ext LOWER veins, bilat Test: Duplex, Ext LOWER veins, bilat REASON FOR EXAMINATION: elev d-dimer, SOB; Bilateral lower extremity deep vein duplex ultrasound:; ; The deep veins demonstrate normal compression, normal Doppler color flow and; normal Doppler waveforms with respiration and augmentation at multiple levels; from the popliteal veins to the common femoral veins bilaterally.; ; Impression:; ; There is no deep vein thrombus on the right on the left.; ; ; Signed by; Ag Loya MD 04/08/2016 05:31 P; Outcome: 19:26 Discharge ordered by Provider. le 19:56 Discharge Assessment: Patient awake, alert and oriented x 3. No cognitive and/or cz functional deficits noted. Patient verbalized understanding of disposition instructions. patient administered narcotics - no. The following High Risk Discharge criteria are identified: None. Discharged to home via wheelchair. Condition: stable. Discharge instructions given to patient, Instructed on discharge instructions, follow up and referral plans. medication usage, Demonstrated understanding of instructions, medications, Pt was receptive of discharge instructions/ teaching. Prescriptions given X 2. Property :Personal belongings accompany Pt. 19:56 Ultrasound Study completed. cz 19:57 Patient left the ED. cz Signatures: Dispatcher [employer] EDSC Tanya Webster RN RN kpj Michelson, Staci, RN RN srm Peters, Mary, Timo Hernandez RN, mcp, RN RN cz Murphy, Jane, FAGOT HEATER HELPER FAGOT HEATER HELPER jam1 Sulema Cho, Reg Reg gb Catina,Ammy,RT RT ac1 Juanis Hardy, INSERT CUTTER INSERT CUTTER Lucía Constantino Huy hgl Rylee Jaime, SHILOH RN Brenda Villeda, FAGOT HEATER HELPER FAGOT HEATER HELPER elp Sandra Tristan Chart Complete MTDD
--- NOTE | 2016-04-10 20:57 | EDDOCDS ---
Physician Documentation [facility] Name: Nancy Ortiz Age: 55 yrs Sex: Female : 1960 Arrival Date: 04/08/2016 Time: 11:26 Bed I8 / 16 Private MD: Tanya Kemp A Disposition: 04/08/16 19:26 Discharged to Home/Self Care. Impression: Pneumonia, unspecified organism, Moderate persistent asthma with (acute) exacerbation. - Condition is Stable. - Discharge Instructions: Asthma, Adult, Pneumonia, Adult. - Prescriptions for Prednisone 20 mg Oral Tablet - take 3 tablet by ORAL route once daily for 5 days; 15 tablet. Zithromax 250 mg Oral Tablet - take 1 tablet by ORAL route once daily start tomorrow; 4 tablet. - Work Release Form - 2 day, Medication Reconciliation, Local Pharmacy Hours form. - Follow up: Tanya Kemp; When: Call to arrange an appointment; Reason: Recheck today's complaints, Continuance of care. - Problem is new. - Symptoms have improved. - Notes: Keep hydrated Return to the ED for worsening shortness of breath, fever or chest pain Historical: - Allergies: no known allergies; - Home Meds: 1. Simvastatin Unknown Oral once daily 2. Atenolol Unknown Oral once daily 3. Ventolin HFA 90 mcg/actuation Nebulizer HFAA 2 puffs every 4-6 hours prn 4. meloxicam 7.5 mg oral tab prn - PMHx: Arthritis; Asthma; Hypercholesterolemia; Hypertension; breast cancer; - PSHx: breast reconstruction bilateral; infusaport insertion and removal; Colonoscopy; - Social history: Smoking status: Patient states was never smoker of tobacco. No barriers to communication noted, The patient speaks fluent Thai, Speaks appropriately for age. - Family history: Not pertinent. - : The pt / caregiver states he / she is not on anticoagulants. Home medication list is obtained from the patient. - Exposure Risk Screening:: None identified. 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 7 in. (170.18 cm) (R); Pain 0/10; 15:00 BP 153 / 71; Pulse 85; Resp 18; Temp 97.7; Pulse Ox 97% ; Pain 0/10; jam1 16:50 BP 140 / 68; Pulse 84; Resp 20; Temp 98.7; Pulse Ox 99% ; Pain 0/10; jam1 19:45 BP 134 / 69; Pulse 100; Resp 20; Temp 97.3; Pulse Ox 94% ; ajs 11:28 Body Mass Index 38.37 (111.13 kg, 170.18 cm) elp MDM: 14:05 Albuterol 5 mg Nebulizer once ordered. le 14:05 Albuterol-Ipratropium 3 ml Inhalation once ordered. le 14:05 Call Respiratory ordered. le 14:05 predniSONE 60 mg PO once; administer with food or milk ordered. le 14:06 D-Dimer Quant Ordered. EDMS 14:06 CBC with Diff Ordered. EDMS 14:06 BMP Ordered. EDMS 14:08 Call Respiratory complete. kpj 15:32 Financial registration complete. gjb 15:39 [facility] Payment Agreement was scanned into [employer] and attached to record. gjb 15:45 D-Dimer Quant Reviewed. le 15:45 CBC with Diff Reviewed. le 15:45 BMP Reviewed. le 16:42 Chest, 2 View (pa\E\lat) Ordered. EDMS 16:51 Duplex, Ext LOWER veins, bilat Ordered. EDMS 17:20 Albuterol-Ipratropium 3 ml Inhalation once ordered. le 17:20 Magnesium Sulfate 2 grams IM once ordered. le 17:20 Vital Signs ordered. le 17:21 REGULAR+DIET ordered. EDMS 19:21 Duplex, Ext LOWER veins, bilat Reviewed. le 19:22 Chest, 2 View (pa\E\lat) Reviewed. le 19:25 azithromycin 500 mg PO once ordered. le 04/09 11:39 T-Sheet-- Draft Copy was scanned into [employer] and attached to record. gb Administered Medications: 04/08 14:15 Drug: predniSONE 60 mg [prednisone 20 mg tablet (3 tabs)] Route: PO; [facility] 14:22 Drug: Albuterol 5 mg [albuterol sulfate 2.5 mg/0.5 mL solution for nebulization (1 mL)] ac1 Route: Nebulizer; 14:28 Follow up: wheese bilat on insp. and exp. ac1 14:28 Drug: Albuterol-Ipratropium 3 ml [ipratropium-albuterol 0.5 mg-3 mg(2.5 mg base)/3 mL ac1 nebulization soln (3 mL)] Route: Inhalation; 14:33 Follow up: insp,exp wheezes bilat ac1 17:26 Drug: Albuterol-Ipratropium 3 ml [ipratropium-albuterol 0.5 mg-3 mg(2.5 mg base)/3 mL ac1 nebulization soln (3 mL)] Route: Inhalation; 17:34 Follow up: sxp wheezes bilat ac1 18:26 Drug: Magnesium Sulfate 2 grams [magnesium sulfate 4 mEq/mL (50 %) injection syringe (2 mcp grams)] Route: IM; Site: left gluteus; 19:55 Drug: azithromycin 500 mg [azithromycin 250 mg tablet (2 tabs)] Route: PO; cz Signatures: Dispatcher [employer] EDTnaya Martin RN RN kpj Michelson, Staci, RN RN srm Zecher, Calvin, SHILOH RN cz Sulema Cho, Reg Reg Juanis Mooney, Sandra Nelson Mary RN mcp Cowles, Ammy RT ac1 The chart was reviewed and I authenticate all verbal orders and agree with the evaluation and treatment provided.Corrections: (The following items were deleted from the chart) 16:42 15:45 IV Saline Lock ordered. scarlet cronin 16:51 16:42 Duplex, Ext,LOWER veins,unilat+US ordered. EDMS EDMS 16:55 15:46 CT ANGIO CHEST+CT ordered. EDMS EDMS Attachments: 15:39 [facility] [place] [facility] Payment Agreement ying 04/09 11:39 T-Sheet-- Draft Copy gb Chart Complete MTDD
== END 2016-04-08 19:57 | disposition home or self-care (01) ==
LOC: M ED 11:26
DX: J45.901 Unspecified asthma with (acute) exacerbation (principal); J18.1 Lobar pneumonia, unspecified organism; M12.9 Arthropathy, unspecified; E78.00 Pure hypercholesterolemia, unspecified; I10 Essential (primary) hypertension; Z85.3 Personal history of malignant neoplasm of breast; Z79.51 Long term (current) use of inhaled steroids; Z79.899 Other long term (current) drug therapy
CPT/HCPCS: 36415; 71020; 80048; 85025; 85379; 93970; 94640; 96372; 99284; J3475

== ENCOUNTER 2016-04-16 09:50 | Emergency (ER) | payer OTHER ==
[2016-04-16] MEDS ORDERED: IPRATROPIUM 0.5MG/ALBUTEROL 2.5MG INH SOL UD 3ML (DUONEB)(J7620) As Ordered ONE (11:10)
[2016-04-16 11:46] LABS: BASO % 0.3 % (0.0-1.0); EOS # 2.2 K/mm3 (0.0-0.50); EOS % 19.4 % (0.0-3.0); LARGE UNSTAINED CELL # 0.2 K/mm3 (0.0-0.4); LYMPH # 2.4 K/mm3 (1.5-4.5); LYMPH % 21.1 % (24.0-44.0); MEAN CORPUSCULAR HEMOGLOBIN 29.2 pg (27.0-33.0); MEAN CORPUSCULAR HGB CONC 32.5 g/dl (32.0-36.5); MEAN CORPUSCULAR VOLUME 89.9 fl (80.0-96.0); MONO # 0.7 K/mm3 (0.0-0.8); MONO % 6.2 % (0.0-5.0); NEUTROPHILS # 5.9 K/mm3 (1.8-7.7); PLATELET COUNT, AUTOMATED 182 k/mm3 (150-450); RED CELL DISTRIBUTION WIDTH 12.8 % (11.5-14.5); WHITE BLOOD COUNT 11.5 K/mm3 (4.0-10.0)
[2016-04-16 12:23] LABS: ANION GAP 8 MEQ/L (8-16); BLOOD UREA NITROGEN 15 MG/DL (7-18); CALCIUM LEVEL 9.3 MG/DL (8.5-10.1); CARBON DIOXIDE LEVEL 30 MEQ/L (21-32); CHLORIDE LEVEL 101 MEQ/L (98-107); CREATININE FOR GFR 0.95 MG/DL (0.55-1.02); GLOMERULAR FILTRATION RATE > 60.0 (>51); GLUCOSE, FASTING 104 MG/DL (70-105); POTASSIUM SERUM 3.8 MEQ/L (3.5-5.1); SODIUM LEVEL 139 MEQ/L (136-145)
[2016-04-16] MEDS ORDERED: ISOVUE-370 76% 100ML VIAL (Q9967) As Ordered ONE (12:48)
--- NOTE | 2016-04-16 13:43 | REP ---
CT pulmonary angiogram: With IV contrast. History: Recent pneumonia. Elevated D-dimer. Comparison studies: August 17, 2013. Contrast dose: 75 cc's of Isovue [address] technique: Helical scanning is acquired and overlapping 1.5 mm and contiguous 3 mm axial images are reformatted. In addition, a 3-D work station is deployed to generate thick slab maximum intensity projection images in sagittal and coronal imaging projections. CT pulmonary angiographic findings: There is good opacification of the pulmonary arterial tree and there is no CT evidence of pulmonary embolism. Maximum intensity projection images show no filling defect or vessel cutoff to suggest a pulmonary thrombus. The thoracic aorta is normal in caliber and course and enhances homogeneously. There is no evidence of pleural or pericardial effusion. No hilar or mediastinal mass or adenopathy is observed. Bilateral breast augmentation implants are noted in place. There are clips in the right axillary soft tissues. No adrenal lesion is seen. The lung narvaez show no evidence of pulmonary nodule, mass, or infiltrate. There is a new fullness in the proximal pancreatic tail with irregular narrowing of the splenic artery. There is dilation of the distal pancreatic duct in the tail of the pancreas up to 6-7 mm in diameter. There is some soft tissue edema or fullness at the anterior inferior margin of this portion of the pancreatic tail. These findings are worrisome for either focal pancreatitis or pancreatic malignancy. They are new findings when compared with the August 17, 2013 prior study. Impression: 1. No CT evidence of pulmonary embolus. 2. Status post bilateral mastectomy with reconstruction and augmentation implants. 3. No active disease in the chest. 4. New fullness and infiltrative appearance in and around the tail of the pancreas suspicious for focal pancreatitis or early pancreatic malignancy. Dedicated pancreatic CT or MRI study recommended. MRCP exam could be considered as well. Signed by Bill Shook MD 04/16/2016 03:05 P
[2016-04-16 13:45] LABS: AMYLASE 74 U/L (25-115)
--- NOTE | 2016-04-16 14:48 | EDDOCDS ---
Nurse's Notes [facility] Name: Nancy Ortiz Age: 55 yrs Sex: Female : 1960 Arrival Date: 04/16/2016 Time: 09:50 Bed I4 / M4 Private MD: Tanya Kemp A Diagnosis: Acute bronchitis;Disease of pancreas, unspecified-unspecified swelling of the tail, incidental finding on CT scan Presentation: 04/16 10:00 Presenting complaint: Patient states: Wheezing, SOB and cough began last night. Adult mlb1 Sepsis Screening: The patient does not have new or worsening altered mentation. Patient's respiratory rate is less than 22. Systolic blood pressure is greater than 100. Patient has a qSOFA score of 0- Negative Sepsis Screen. Suicide/Homicide risk assessment- the patient denies having any suicidal and/or homicidal ideations and does not present with any other emotional, behavioral or mental health complaints. Status: Patient is not a food service team member or dependent. Transition of care: patient was not received from another setting of care. 10:00 Acuity: GOMEZ Level 3 mlb1 10:00 Method Of Arrival: Walkin/Carried/Asstd mlb1 Triage Assessment: 10:02 General: Appears in no apparent distress, Behavior is anxious, cooperative. Pain: mlb1 Denies pain. HIV screening NA for this visit Offered previously. Respiratory: Reports shortness of breath cough that is. 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 Atenolol Oral once daily 2. Simvastatin Oral once daily 3. Ventolin HFA 90 mcg/actuation Nebulizer HFAA 2 puffs every 4-6 hours prn 4. meloxicam 7.5 mg oral tab prn - PMHx: Arthritis; Asthma; breast cancer; Hypertension; Hypercholesterolemia; - PSHx: breast reconstruction bilateral; infusaport insertion and removal; Colonoscopy; - Social history: Smoking status: Patient states was never smoker of tobacco. No barriers to communication noted, The patient speaks fluent [place], Speaks appropriately for age. - Family history: Not pertinent. - : The pt / caregiver states he / she is not on anticoagulants. Home medication list is obtained from the patient. - Exposure Risk Screening:: None identified. Screenin:18 Screening information is obtained from the patient. Fall risk: No risks identified. ja5 Assistance ADL's: requires no assistance with activities of daily living. Abuse/DV Screen: The patient / caregiver reports he/she is: not in a situation that causes fear, pain or injury. Nutritional screening: On no prescribed diet. home support is adequate. 11:40 Advance Directives: Currently, there is a health care proxy, Taty Link, sister. ja5 There is no active DNR order. There is no living will. There is no Power of Linen Attendant. Assessment: 11:14 General: Appears in no apparent distress, Behavior is appropriate for age, cooperative. ja5 Pain: Denies pain. Neurological: Level of Consciousness is awake, alert, Oriented to person, place, time. Cardiovascular: Capillary refill < 3 seconds Heart tones S1 S2 present. Respiratory: Airway is patent Respiratory effort is even, unlabored, Breath sounds with wheezes inspiratory expiratory. Derm: Skin is intact, Skin is pink, warm & dry. 11:56 General: Pt sitting up on stretcher. No distress noted at this time. Color pink, skin jc4 warm and dry. Respirations easy and full. Warm blankets given. 12:59 General: pt ambulated back from CT. pt appears in no distress at this time. Airway dsf patent respirations easy and unlabored. 13:56 Adult Sepsis Screening: The patient does not have new or worsening altered mentation. dsf Patient's respiratory rate is less than 22. Systolic blood pressure is greater than 100. Patient has a qSOFA score of 0- Negative Sepsis Screen. General: Appears in no apparent distress, Behavior is appropriate for age, cooperative. Neurological: Level of Consciousness is awake, alert. Cardiovascular: Capillary refill < 3 seconds. Respiratory: Airway is patent Respiratory effort is even, unlabored, Respiratory pattern is regular, symmetrical. Derm: Skin is pink, warm & dry. 14:44 General: Appears in no apparent distress, Behavior is appropriate for age, cooperative. ja5 Pain: Denies pain. Neurological: Level of Consciousness is awake, alert, Oriented to person, place, time. Cardiovascular: Capillary refill < 3 seconds. Respiratory: Airway is patent Respiratory effort is even, unlabored, Respiratory pattern is regular, symmetrical, Denies shortness of breath at rest, labored breathing. Derm: Skin is intact, Skin is pink, warm & dry. 14:45 General: Patient states that she is "feeling better" after treatment and plans on ja5 following up so she doesn't have to come back to the ED. Discharge instructions received, patient verbalized understanding. . Vital Signs: 09:53 BP 137 / 64; Pulse 71; Resp 18; Temp 97.8(O); Pulse Ox 100% on R/A; Weight 110.68 kg ct3 (R); Height 5 ft. 7 in. (170.18 cm) (R); Pain 0/10; 14:35 BP 121 / 62; Pulse 81; Resp 20; Temp 98.4; Pulse Ox 97% on R/A; Pain 0/10; ja5 09:53 Body Mass Index 38.22 (110.68 kg, 170.18 cm) ct3 Vitals: 09:53 Log In Time: April 16, 2016 at 09:50. ct3 ED Course: 09:52 Patient visited by Helen Sumner PCA. ct3 09:52 Tanya Kemp is Private Physician. ct3 09:52 Patient moved to Waiting ct3 09:54 Patient moved to Pre RCE ct3 10:00 Patient visited by Cory Cornejo RN. mlb1 10:00 The patient / caregiver is instructed regarding the plan of care and ED course. ja5 10:01 Triage Initiated mlb1 10:02 Patient visited by Cory Cornejo, SHILOH. mlb1 10:02 Patient moved to Triage 3 mlb1 10:43 [facility]. ar2 10:43 Jorge Marley MD is Attending Physician. ar2 10:43 Patient visited by Jerod James PA-C. ar2 10:55 Zulma Dodge, RN is Primary Nurse. ct3 10:55 Maggy Badillo,SHILOH is Primary Nurse. ct3 10:55 Patient moved to I4 / M4 ct3 11:22 CBC with Diff Sent. dsf 11:22 MED Profile Sent. dsf 11:30 Missed attempts: 20 gauge X 1 in left hand. ja5 11:47 Patient visited by Jerod James PA-C. ar2 11:56 Patient visited by Zulma Dodge, SHILOH. jc4 12:59 Patient visited by Leisa Urrutia RN. dsf 13:48 CT Chest Angio R/O PE Returned. EDMS 13:56 Patient visited by Leisa Urrutia RN. dsf 14:18 Tanya Kemp is Referral Physician. ar2 14:18 Gloria Butts is Referral Physician. ar2 14:35 Discontinued lock intact, bleeding controlled, pressure dressing applied, No ja5 redness/swelling at site. 14:36 No procedures done that require assistance. ja5 Administered Medications: 11:10 Drug: Albuterol-Ipratropium 1 neb [ipratropium-albuterol 0.5 mg-3 mg(2.5 mg base)/3 mL kt1 nebulization soln (1 neb)] Route: Nebulizer; 11:23 Drug: Albuterol-Ipratropium 1 neb [ipratropium-albuterol 0.5 mg-3 mg(2.5 mg base)/3 mL kt1 nebulization soln (1 neb)] Route: Nebulizer; 11:23 Follow up: Response: Nebulizer completed kt1 RT: 11:10 Initial Med Neb Given as ordered Patient was instructed and evaluated on procedure. kt1 Respiratory: Breath sounds with wheezes bilaterally. at expiration. 11:23 Subsequent Med Neb Given as ordered Patient tolerated procedure well without adverse kt1 effect. Order Results: Lab Order: CBC with Diff; SPEC'M 04/16/16 11:16 Test: WHITE BLOOD COUNT; Value: 11.5; Range: 4.0-10.0; Abnormal: Above high normal; Units: K/mm3; Status: F Test: RED BLOOD COUNT; Value: 4.19; Range: 4.00-5.40; Units: M/mm3; Status: F Test: HEMOGLOBIN; Value: 12.2; Range: 12.0-16.0; Units: g/dl; Status: F Test: HEMATOCRIT; Value: 37.6; Range: 36.0-47.0; Units: %; Status: F Test: MEAN CORPUSCULAR VOLUME; Value: 89.9; Range: 80.0-96.0; Units: fl; Status: F Test: MEAN CORPUSCULAR HEMOGLOBIN; Value: 29.2; Range: 27.0-33.0; Units: pg; Status: F Test: MEAN CORPUSCULAR HGB CONC; Value: 32.5; Range: 32.0-36.5; Units: g/dl; Status: F Test: RED CELL DISTRIBUTION WIDTH; Value: 12.8; Range: 11.5-14.5; Units: %; Status: F Test: PLATELET COUNT, AUTOMATED; Value: 182; Range: 150-450; Units: k/mm3; Status: F Test: NEUTROPHILS %; Value: 51.0; Range: 36.0-66.0; Units: %; Status: F Test: LYMPH %; Value: 21.1; Range: 24.0-44.0; Abnormal: Below low normal; Units: %; Status: F Test: MONO %; Value: 6.2; Range: 0.0-5.0; Abnormal: Above high normal; Units: %; Status: F Test: EOS %; Value: 19.4; Range: 0.0-3.0; Abnormal: Above high normal; Units: %; Status: F Test: BASO %; Value: 0.3; Range: 0.0-1.0; Units: %; Status: F Test: LARGE UNSTAINED CELL %; Value: 2.0; Range: 0.0-4.0; Units: %; Status: F Test: NEUTROPHILS #; Value: 5.9; Range: 1.8-7.7; Units: K/mm3; Status: F Test: LYMPH #; Value: 2.4; Range: 1.5-4.5; Units: K/mm3; Status: F Test: MONO #; Value: 0.7; Range: 0.0-0.8; Units: K/mm3; Status: F Test: EOS #; Value: 2.2; Range: 0.0-0.50; Abnormal: Above high normal; Units: K/mm3; Status: F Test: BASO #; Value: 0.0; Range: 0.0-0.2; Units: K/mm3; Status: F Test: LARGE UNSTAINED CELL #; Value: 0.2; Range: 0.0-0.4; Units: K/mm3; Status: F Lab Order: MED Profile; SPEC'M 04/16/16 11:51 Test: GLUCOSE, FASTING; Value: 104; Range: 70-105; Units: MG/DL; Status: F Test: BLOOD UREA NITROGEN; Value: 15; Range: 7-18; Units: MG/DL; Status: F Test: CREATININE FOR GFR; Value: 0.95; Range: 0.55-1.02; Units: MG/DL; Status: F Test: GLOMERULAR FILTRATION RATE; Value: > 60.0; Range: >51; Status: F Test: SODIUM LEVEL; Value: 139; Range: 136-145; Units: MEQ/L; Status: F Test: POTASSIUM SERUM; Value: 3.8; Range: 3.5-5.1; Units: MEQ/L; Status: F Test: CHLORIDE LEVEL; Value: 101; Range: 98-107; Units: MEQ/L; Status: F Test: CARBON DIOXIDE LEVEL; Value: 30; Range: 21-32; Units: MEQ/L; Status: F Test: ANION GAP; Value: 8; Range: 8-16; Units: MEQ/L; Status: F Test: CALCIUM LEVEL; Value: 9.3; Range: 8.5-10.1; Units: MG/DL; Status: F Test Note: ; Units are mL/min/1.73 m2 Chronic Kidney Disease Staging per NKF: Stage I & II GFR >=60 Normal to Mildly Decreased Stage III GFR 30-59 Moderately Decreased Stage IV GFR 15-29 Severely Decreased Stage V GFR <15 Very Little GFR Left ESRD GFR <15 on ADMISSIONS MANAGER RN Lab Order: AMYLASE; SPEC'M 04/16/16 11:51 Test: AMYLASE; Value: 74; Range: 25-115; Units: U/L; Status: F Lab Order: LIPASE; SPEC'M 04/16/16 11:51 Test: LIPASE; Value: 169; Range: 73-393; Units: U/L; Status: F Radiology Order: CT Chest Angio R/O PE Test: CT Chest Angio R/O PE REASON FOR EXAMINATION: recent pneumonia, elevated d-dimer; CT pulmonary angiogram: With IV contrast.; ; History: Recent pneumonia. Elevated D-dimer.; ; Comparison studies: August 17, 2013.; ; Contrast dose: 75 cc's of Isovue 370 are administered intravenously.; ; CT technique: Helical scanning is acquired and overlapping 1.5 mm and contiguous; 3 mm axial images are reformatted. In addition, a 3-D work station is deployed; to generate thick slab maximum intensity projection images in sagittal and; coronal imaging projections.; ; CT pulmonary angiographic findings: There is good opacification of the pulmonary; arterial tree and there is no CT evidence of pulmonary embolism. Maximum; intensity projection images show no filling defect or vessel cutoff to suggest a; pulmonary thrombus. The thoracic aorta is normal in caliber and course and; enhances homogeneously. There is no evidence of pleural or pericardial effusion.; No hilar or mediastinal mass or adenopathy is observed. Bilateral breast; augmentation implants are noted in place. There are clips in the right axillary; soft tissues. No adrenal lesion is seen. The lung narvaez show no evidence of; pulmonary nodule, mass, or infiltrate.; ; There is a new fullness in the proximal pancreatic tail with irregular narrowing; of the splenic artery. There is dilation of the distal pancreatic duct in the; tail of the pancreas up to 6-7 mm in diameter. There is some soft tissue edema; or fullness at the anterior inferior margin of this portion of the pancreatic; tail. These findings are worrisome for either focal pancreatitis or pancreatic; malignancy. They are new findings when compared with the August 17, 2013 prior; study.; ; Impression:; 1. No CT evidence of pulmonary embolus.; 2. Status post bilateral mastectomy with reconstruction and augmentation; implants.; 3. No active disease in the chest.; 4. New fullness and infiltrative appearance in and around the tail of the; pancreas suspicious for focal pancreatitis or early pancreatic malignancy.; Dedicated pancreatic CT or MRI study recommended. MRCP exam could be considered; as well.; ; ; ; ; Unreviewed; Outcome: 14:20 Discharge ordered by Provider. ar2 14:36 Discharge Assessment: Patient awake, alert and oriented x 3. No cognitive and/or ja5 functional deficits noted. Patient verbalized understanding of disposition instructions. patient administered narcotics - no. The following High Risk Discharge criteria are identified: None. Discharged to home. Condition: stable. Discharge instructions given to patient, Instructed on discharge instructions, follow up and referral plans. medication usage, spacer for inhaler. CT Study completed. Property :Personal belongings accompany Pt. 14:47 Patient left the ED. ja5 Signatures: Dispatcher [facility] Cory Cornejo RN RN mlb1 Rosalie Salas kt1 Jerod James PA-C PA-C ar2 Zulma Dodge, RN RN jc4 Helen Sumner, SOLED[employer] GREENSKEEPER [employer]ORER ct3 Leisa Urrutia,RN RN Maggy BeckmanRN RN ja5 UNAD
--- NOTE | 2016-04-16 14:48 | EDDOCDS ---
Physician Documentation [facility] Name: Nancy Ortiz Age: 55 yrs Sex: Female : 1960 Arrival Date: 04/16/2016 Time: 09:50 Bed I4 / M4 Private MD: Tanya Kemp A Disposition: 04/16/16 14:20 Discharged to Home/Self Care. Impression: Acute bronchitis, Disease of pancreas, unspecified - unspecified swelling of the tail, incidental finding on CT scan. - Condition is Stable. - Discharge Instructions: Acute Bronchitis, Metered Dose Inhaler with Spacer. - Prescriptions for Prednisone 20 mg Oral Tablet - take 1 tablet by ORAL route as directed Day 1-3: 3 po, day 4-7: 2 po, day 8-10: 1 po; 20 tablet. Mucinex 600 mg - take 1 tablet by ORAL route 2 times per day; 30 tablet. benzonatate 200 mg Oral Capsule - take 1 capsule by ORAL route 3 times per day As needed; 30 capsule. - Medication Reconciliation, Local Pharmacy Hours, Work Release Form - 2 day form. - Follow up: Tanya Kemp; When: 1 week; Reason: Recheck today's complaints. Follow up: Gloria Butts; When: Call to arrange an appointment; Reason: Further diagnostic work-up. Follow up: Emergency Department; When: As needed; Reason: Fever > 102F, Trouble breathing, Worsening of conditions. - Problem is new. - Symptoms have improved. Historical: - Allergies: no known allergies; - Home Meds: 1. Atenolol Oral once daily 2. Simvastatin Oral once daily 3. Ventolin HFA 90 mcg/actuation Nebulizer HFAA 2 puffs every 4-6 hours prn 4. meloxicam 7.5 mg oral tab prn - PMHx: Arthritis; Asthma; breast cancer; Hypertension; Hypercholesterolemia; - PSHx: breast reconstruction bilateral; infusaport insertion and removal; Colonoscopy; - Social history: Smoking status: Patient states was never smoker of tobacco. No barriers to communication noted, The patient speaks fluent Italian, Speaks appropriately for age. - Family history: Not pertinent. - : The pt / caregiver states he / she is not on anticoagulants. Home medication list is obtained from the patient. - Exposure Risk Screening:: None identified. 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 7 in. (170.18 cm) (R); Pain 0/10; 14:35 BP 121 / 62; Pulse 81; Resp 20; Temp 98.4; Pulse Ox 97% on R/A; Pain 0/10; ja5 09:53 Body Mass Index 38.22 (110.68 kg, 170.18 cm) ct3 MDM: 10:44 Financial registration complete. lg 10:54 IV Saline Lock ordered. ar2 10:54 Albuterol-Ipratropium 1 neb Nebulizer every 20 minutes x3 ordered. ar2 10:55 CBC with Diff Ordered. EDMS 10:55 MED Profile Ordered. EDMS 11:49 CT Chest Angio R/O PE Ordered. EDMS 12:30 CBC with Diff Reviewed. ar2 12:30 MED Profile Reviewed. ar2 13:50 MED Profile Reviewed. ar2 13:50 AMYLASE Reviewed. ar2 13:50 LIPASE Reviewed. ar2 13:50 CT Chest Angio R/O PE Reviewed. ar2 14:17 MDI teaching with Spacer ordered. ar2 Administered Medications: 11:10 Drug: Albuterol-Ipratropium 1 neb [ipratropium-albuterol 0.5 mg-3 mg(2.5 mg base)/3 mL kt1 nebulization soln (1 neb)] Route: Nebulizer; 11:23 Drug: Albuterol-Ipratropium 1 neb [ipratropium-albuterol 0.5 mg-3 mg(2.5 mg base)/3 mL kt1 nebulization soln (1 neb)] Route: Nebulizer; 11:23 Follow up: Response: Nebulizer completed kt1 Signatures: Dispatcher [employer] EDMS Rachel Nunez, Andrei Reg lg Cory Cornejo RN RN mlb1 Jerod James, PAJimmieC PAJimmieC ar2 Maggy Badillo RN RN ja5 Rosalie Salas kt1 The chart was reviewed and I authenticate all verbal orders and agree with the evaluation and treatment provided.Corrections: (The following items were deleted from the chart) 13: 13:35 AMYLASE+LAB ordered. EDMS EDMS 13:41 13:35 LIPASE+LAB ordered. EDMS EDMS MTDD
--- NOTE | 2016-04-18 15:49 | EDDOCDS ---
Physician Documentation [facility] Name: Nancy Ortiz Age: 55 yrs Sex: Female : 1960 Arrival Date: 04/16/2016 Time: 09:50 Bed I4 / M4 Private MD: Tanya Kemp A Disposition: 04/16/16 14:20 Discharged to Home/Self Care. Impression: Acute bronchitis, Disease of pancreas, unspecified - unspecified swelling of the tail, incidental finding on CT scan. - Condition is Stable. - Discharge Instructions: Acute Bronchitis, Metered Dose Inhaler with Spacer. - Prescriptions for Prednisone 20 mg Oral Tablet - take 1 tablet by ORAL route as directed Day 1-3: 3 po, day 4-7: 2 po, day 8-10: 1 po; 20 tablet. Mucinex 600 mg - take 1 tablet by ORAL route 2 times per day; 30 tablet. benzonatate 200 mg Oral Capsule - take 1 capsule by ORAL route 3 times per day As needed; 30 capsule. - Medication Reconciliation, Local Pharmacy Hours, Work Release Form - 2 day form. - Follow up: Tanya Kemp; When: 1 week; Reason: Recheck today's complaints. Follow up: Gloria Butts; When: Call to arrange an appointment; Reason: Further diagnostic work-up. Follow up: Emergency Department; When: As needed; Reason: Fever > 102F, Trouble breathing, Worsening of conditions. - Problem is new. - Symptoms have improved. Historical: - Allergies: no known allergies; - Home Meds: 1. Atenolol Oral once daily 2. Simvastatin Oral once daily 3. Ventolin HFA 90 mcg/actuation Nebulizer HFAA 2 puffs every 4-6 hours prn 4. meloxicam 7.5 mg oral tab prn - PMHx: Arthritis; Asthma; breast cancer; Hypertension; Hypercholesterolemia; - PSHx: breast reconstruction bilateral; infusaport insertion and removal; Colonoscopy; - Social history: Smoking status: Patient states was never smoker of tobacco. No barriers to communication noted, The patient speaks fluent Greek, Speaks appropriately for age. - Family history: Not pertinent. - : The pt / caregiver states he / she is not on anticoagulants. Home medication list is obtained from the patient. - Exposure Risk Screening:: None identified. 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 7 in. (170.18 cm) (R); Pain 0/10; 14:35 BP 121 / 62; Pulse 81; Resp 20; Temp 98.4; Pulse Ox 97% on R/A; Pain 0/10; ja5 09:53 Body Mass Index 38.22 (110.68 kg, 170.18 cm) ct3 MDM: 10:44 Financial registration complete. lg 10:54 IV Saline Lock ordered. ar2 10:54 Albuterol-Ipratropium 1 neb Nebulizer every 20 minutes x3 ordered. ar2 10:55 CBC with Diff Ordered. EDMS 10:55 MED Profile Ordered. EDMS 11:49 CT Chest Angio R/O PE Ordered. EDMS 12:30 CBC with Diff Reviewed. ar2 12:30 MED Profile Reviewed. ar2 13:50 MED Profile Reviewed. ar2 13:50 AMYLASE Reviewed. ar2 13:50 LIPASE Reviewed. ar2 13:50 CT Chest Angio R/O PE Reviewed. ar2 14:17 MDI teaching with Spacer ordered. ar2 04/17 11:38 T-Sheet-- Draft Copy was scanned into [employer] and attached to record. gb 11:39 Radiology Report was scanned into [employer] and attached to record. gb Administered Medications: 04/16 11:10 Drug: Albuterol-Ipratropium 1 neb [ipratropium-albuterol 0.5 mg-3 mg(2.5 mg base)/3 mL kt1 nebulization soln (1 neb)] Route: Nebulizer; 11:23 Drug: Albuterol-Ipratropium 1 neb [ipratropium-albuterol 0.5 mg-3 mg(2.5 mg base)/3 mL kt1 nebulization soln (1 neb)] Route: Nebulizer; 11:23 Follow up: Response: Nebulizer completed kt1 Signatures: Dispatcher [employer] EDMS Sulema Cho, Reg Reg gb Rachel Nunez, Reg Reg lg Cory Cornejo RN RN mlb1 Jerod James PAJimmieC PA-C ar2 Maggy Badillo,RN RN ja5 Rosalie Salas The chart was reviewed and I authenticate all verbal orders and agree with the evaluation and treatment provided.Corrections: (The following items were deleted from the chart) 13:41 13:35 AMYLASE+LAB ordered. EDMS EDMS 13:41 13:35 LIPASE+LAB ordered. EDMS EDMS Attachments: 04/17 11:38 T-Sheet-- Draft Copy gb Chart Complete MTDD
--- NOTE | 2016-04-18 15:49 | EDDOCDS ---
Physician Documentation [facility] Name: Nancy Ortiz Age: 55 yrs Sex: Female : 1960 Arrival Date: 04/16/2016 Time: 09:50 Bed I4 / M4 Private MD: Tanya Kemp A Disposition: 04/16/16 14:20 Discharged to Home/Self Care. Impression: Acute bronchitis, Disease of pancreas, unspecified - unspecified swelling of the tail, incidental finding on CT scan. - Condition is Stable. - Discharge Instructions: Acute Bronchitis, Metered Dose Inhaler with Spacer. - Prescriptions for Prednisone 20 mg Oral Tablet - take 1 tablet by ORAL route as directed Day 1-3: 3 po, day 4-7: 2 po, day 8-10: 1 po; 20 tablet. Mucinex 600 mg - take 1 tablet by ORAL route 2 times per day; 30 tablet. benzonatate 200 mg Oral Capsule - take 1 capsule by ORAL route 3 times per day As needed; 30 capsule. - Medication Reconciliation, Local Pharmacy Hours, Work Release Form - 2 day form. - Follow up: Tanya Kemp; When: 1 week; Reason: Recheck today's complaints. Follow up: Gloria Butts; When: Call to arrange an appointment; Reason: Further diagnostic work-up. Follow up: Emergency Department; When: As needed; Reason: Fever > 102F, Trouble breathing, Worsening of conditions. - Problem is new. - Symptoms have improved. Historical: - Allergies: no known allergies; - Home Meds: 1. Atenolol Oral once daily 2. Simvastatin Oral once daily 3. Ventolin HFA 90 mcg/actuation Nebulizer HFAA 2 puffs every 4-6 hours prn 4. meloxicam 7.5 mg oral tab prn - PMHx: Arthritis; Asthma; breast cancer; Hypertension; Hypercholesterolemia; - PSHx: breast reconstruction bilateral; infusaport insertion and removal; Colonoscopy; - Social history: Smoking status: Patient states was never smoker of tobacco. No barriers to communication noted, The patient speaks fluent Egyptian, Speaks appropriately for age. - Family history: Not pertinent. - : The pt / caregiver states he / she is not on anticoagulants. Home medication list is obtained from the patient. - Exposure Risk Screening:: None identified. 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 7 in. (170.18 cm) (R); Pain 0/10; 14:35 BP 121 / 62; Pulse 81; Resp 20; Temp 98.4; Pulse Ox 97% on R/A; Pain 0/10; ja5 09:53 Body Mass Index 38.22 (110.68 kg, 170.18 cm) ct3 MDM: 10:44 Financial registration complete. lg 10:54 IV Saline Lock ordered. ar2 10:54 Albuterol-Ipratropium 1 neb Nebulizer every 20 minutes x3 ordered. ar2 10:55 CBC with Diff Ordered. EDMS 10:55 MED Profile Ordered. EDMS 11:49 CT Chest Angio R/O PE Ordered. EDMS 12:30 CBC with Diff Reviewed. ar2 12:30 MED Profile Reviewed. ar2 13:50 MED Profile Reviewed. ar2 13:50 AMYLASE Reviewed. ar2 13:50 LIPASE Reviewed. ar2 13:50 CT Chest Angio R/O PE Reviewed. ar2 14:17 MDI teaching with Spacer ordered. ar2 04/17 11:38 T-Sheet-- Draft Copy was scanned into [employer] and attached to record. gb 11:39 Radiology Report was scanned into [employer] and attached to record. gb Administered Medications: 04/16 11:10 Drug: Albuterol-Ipratropium 1 neb [ipratropium-albuterol 0.5 mg-3 mg(2.5 mg base)/3 mL kt1 nebulization soln (1 neb)] Route: Nebulizer; 11:23 Drug: Albuterol-Ipratropium 1 neb [ipratropium-albuterol 0.5 mg-3 mg(2.5 mg base)/3 mL kt1 nebulization soln (1 neb)] Route: Nebulizer; 11:23 Follow up: Response: Nebulizer completed kt1 Signatures: Dispatcher [employer] EDMS Sulema Cho, Reg Reg gb Rachel Nunez, Reg Reg lg Cory Cornejo RN RN mlb1 Jerod James PAJimmieC PA-C ar2 Maggy Badillo,RN RN ja5 Rosalie Salas The chart was reviewed and I authenticate all verbal orders and agree with the evaluation and treatment provided.Corrections: (The following items were deleted from the chart) 13:41 13:35 AMYLASE+LAB ordered. EDMS EDMS 13:41 13:35 LIPASE+LAB ordered. EDMS EDMS Attachments: 04/17 11:38 T-Sheet-- Draft Copy gb Chart Complete MTDD
--- NOTE | 2016-04-18 15:50 | EDDOCDS ---
Nurse's Notes [facility] Name: Nancy Ortiz Age: 55 yrs Sex: Female : 1960 Arrival Date: 04/16/2016 Time: 09:50 Bed I4 / M4 Private MD: Tanya Kemp A Diagnosis: Acute bronchitis;Disease of pancreas, unspecified-unspecified swelling of the tail, incidental finding on CT scan Presentation: 04/16 10:00 Presenting complaint: Patient states: Wheezing, SOB and cough began last night. Adult mlb1 Sepsis Screening: The patient does not have new or worsening altered mentation. Patient's respiratory rate is less than 22. Systolic blood pressure is greater than 100. Patient has a qSOFA score of 0- Negative Sepsis Screen. Suicide/Homicide risk assessment- the patient denies having any suicidal and/or homicidal ideations and does not present with any other emotional, behavioral or mental health complaints. 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 Transition of care: patient was not received from another setting of care. 10:00 Acuity: GOMEZ Level 3 mlb1 10:00 Method Of Arrival: Walkin/Carried/Asstd mlb1 Triage Assessment: 10:02 General: Appears in no apparent distress, Behavior is anxious, cooperative. Pain: mlb1 Denies pain. HIV screening NA for this visit Offered previously. Respiratory: Reports shortness of breath cough that is. 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 Atenolol Oral once daily 2. Simvastatin Oral once daily 3. Ventolin HFA 90 mcg/actuation Nebulizer HFAA 2 puffs every 4-6 hours prn 4. meloxicam 7.5 mg oral tab prn - PMHx: Arthritis; Asthma; breast cancer; Hypertension; Hypercholesterolemia; - PSHx: breast reconstruction bilateral; infusaport insertion and removal; Colonoscopy; - Social history: Smoking status: Patient states was never smoker of tobacco. No barriers to communication noted, The patient speaks fluent Cymraes, Speaks appropriately for age. - Family history: Not pertinent. - : The pt / caregiver states he / she is not on anticoagulants. Home medication list is obtained from the patient. - Exposure Risk Screening:: None identified. Screenin:18 Screening information is obtained from the patient. Fall risk: No risks identified. ja5 Assistance ADL's: requires no assistance with activities of daily living. Abuse/DV Screen: The patient / caregiver reports he/she is: not in a situation that causes fear, pain or injury. Nutritional screening: On no prescribed diet. home support is adequate. 11:40 Advance Directives: Currently, there is a health care proxy, Taty Link, sister. ja5 There is no active DNR order. There is no living will. 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 Assessment: 11:14 General: Appears in no apparent distress, Behavior is appropriate for age, cooperative. ja5 Pain: Denies pain. Neurological: Level of Consciousness is awake, alert, Oriented to person, place, time. Cardiovascular: Capillary refill < 3 seconds Heart tones S1 S2 present. Respiratory: Airway is patent Respiratory effort is even, unlabored, Breath sounds with wheezes inspiratory expiratory. Derm: Skin is intact, Skin is pink, warm & dry. 11:56 General: Pt sitting up on stretcher. No distress noted at this time. Color pink, skin jc4 warm and dry. Respirations easy and full. Warm blankets given. 12:59 General: pt ambulated back from CT. pt appears in no distress at this time. Airway dsf patent respirations easy and unlabored. 13:56 Adult Sepsis Screening: The patient does not have new or worsening altered mentation. dsf Patient's respiratory rate is less than 22. Systolic blood pressure is greater than 100. Patient has a qSOFA score of 0- Negative Sepsis Screen. General: Appears in no apparent distress, Behavior is appropriate for age, cooperative. Neurological: Level of Consciousness is awake, alert. Cardiovascular: Capillary refill < 3 seconds. Respiratory: Airway is patent Respiratory effort is even, unlabored, Respiratory pattern is regular, symmetrical. Derm: Skin is pink, warm & dry. 14:44 General: Appears in no apparent distress, Behavior is appropriate for age, cooperative. ja5 Pain: Denies pain. Neurological: Level of Consciousness is awake, alert, Oriented to person, place, time. Cardiovascular: Capillary refill < 3 seconds. Respiratory: Airway is patent Respiratory effort is even, unlabored, Respiratory pattern is regular, symmetrical, Denies shortness of breath at rest, labored breathing. Derm: Skin is intact, Skin is pink, warm & dry. 14:45 General: Patient states that she is "feeling better" after treatment and plans on ja5 following up so she doesn't have to come back to the ED. Discharge instructions received, patient verbalized understanding. . Vital Signs: 09:53 BP 137 / 64; Pulse 71; Resp 18; Temp 97.8(O); Pulse Ox 100% on R/A; Weight 110.68 kg ct3 (R); Height 5 ft. 7 in. (170.18 cm) (R); Pain 0/10; 14:35 BP 121 / 62; Pulse 81; Resp 20; Temp 98.4; Pulse Ox 97% on R/A; Pain 0/10; ja5 09:53 Body Mass Index 38.22 (110.68 kg, 170.18 cm) ct3 Vitals: 09:53 Log In Time: April 16, 2016 at 09:50. ct3 ED Course: 09:52 Patient visited by Helen Sumner PCA. ct3 09:52 Tanya Kemp is Private Physician. ct3 09:52 Patient moved to Waiting ct3 09:54 Patient moved to Pre RCE ct3 10:00 Patient visited by Cory Cornejo RN. mlb1 10:00 The patient / caregiver is instructed regarding the plan of care and ED course. ja5 10:01 Triage Initiated mlb1 10:02 Patient visited by Cory Cornejo, SHILOH. mlb1 10:02 Patient moved to Triage 3 mlb1 10:43 [facility] ar2 10:43 Jorge Marley MD is Attending Physician. ar2 10:43 Patient visited by Jerod James PA-C. ar2 10:55 Zulma Dodge, RN is Primary Nurse. ct3 10:55 Maggy Badillo,SHILOH is Primary Nurse. ct3 10:55 Patient moved to I4 / M4 ct3 11:22 CBC with Diff Sent. dsf 11:22 MED Profile Sent. dsf 11:30 Missed attempts: 20 gauge X 1 in left hand. ja5 11:47 Patient visited by Jerod James PA-C. ar2 11:56 Patient visited by Zulma Dodge, SHILOH. jc4 12:59 Patient visited by Leisa Urrutia RN. dsf 13:48 CT Chest Angio R/O PE Returned. EDMS 13:56 Patient visited by Leisa Urrutia RN. dsf 14:18 Tanya Kemp is Referral Physician. ar2 14:18 Gloria Butts is Referral Physician. ar2 14:35 Discontinued lock intact, bleeding controlled, pressure dressing applied, No ja5 redness/swelling at site. 14:36 No procedures done that require assistance. ja5 15:32 CT Chest Angio R/O PE Returned. EDMS 04/17 11:38 T-Sheet-- Draft Copy was scanned into [employer] and attached to record. gb 11:39 Radiology Report was scanned into [employer] and attached to record. gb Administered Medications: 04/16 11:10 Drug: Albuterol-Ipratropium 1 neb [ipratropium-albuterol 0.5 mg-3 mg(2.5 mg base)/3 mL kt1 nebulization soln (1 neb)] Route: Nebulizer; 11:23 Drug: Albuterol-Ipratropium 1 neb [ipratropium-albuterol 0.5 mg-3 mg(2.5 mg base)/3 mL kt1 nebulization soln (1 neb)] Route: Nebulizer; 11:23 Follow up: Response: Nebulizer completed kt1 RT: 11:10 Initial Med Neb Given as ordered Patient was instructed and evaluated on procedure. kt1 Respiratory: Breath sounds with wheezes bilaterally. at expiration. 11:23 Subsequent Med Neb Given as ordered Patient tolerated procedure well without adverse kt1 effect. Order Results: Lab Order: CBC with Diff; SPEC'M 04/16/16 11:16 Test: WHITE BLOOD COUNT; Value: 11.5; Range: 4.0-10.0; Abnormal: Above high normal; Units: K/mm3; Status: F Test: RED BLOOD COUNT; Value: 4.19; Range: 4.00-5.40; Units: M/mm3; Status: F Test: HEMOGLOBIN; Value: 12.2; Range: 12.0-16.0; Units: g/dl; Status: F Test: HEMATOCRIT; Value: 37.6; Range: 36.0-47.0; Units: %; Status: F Test: MEAN CORPUSCULAR VOLUME; Value: 89.9; Range: 80.0-96.0; Units: fl; Status: F Test: MEAN CORPUSCULAR HEMOGLOBIN; Value: 29.2; Range: 27.0-33.0; Units: pg; Status: F Test: MEAN CORPUSCULAR HGB CONC; Value: 32.5; Range: 32.0-36.5; Units: g/dl; Status: F Test: RED CELL DISTRIBUTION WIDTH; Value: 12.8; Range: 11.5-14.5; Units: %; Status: F Test: PLATELET COUNT, AUTOMATED; Value: 182; Range: 150-450; Units: k/mm3; Status: F Test: NEUTROPHILS %; Value: 51.0; Range: 36.0-66.0; Units: %; Status: F Test: LYMPH %; Value: 21.1; Range: 24.0-44.0; Abnormal: Below low normal; Units: %; Status: F Test: MONO %; Value: 6.2; Range: 0.0-5.0; Abnormal: Above high normal; Units: %; Status: F Test: EOS %; Value: 19.4; Range: 0.0-3.0; Abnormal: Above high normal; Units: %; Status: F Test: BASO %; Value: 0.3; Range: 0.0-1.0; Units: %; Status: F Test: LARGE UNSTAINED CELL %; Value: 2.0; Range: 0.0-4.0; Units: %; Status: F Test: NEUTROPHILS #; Value: 5.9; Range: 1.8-7.7; Units: K/mm3; Status: F Test: LYMPH #; Value: 2.4; Range: 1.5-4.5; Units: K/mm3; Status: F Test: MONO #; Value: 0.7; Range: 0.0-0.8; Units: K/mm3; Status: F Test: EOS #; Value: 2.2; Range: 0.0-0.50; Abnormal: Above high normal; Units: K/mm3; Status: F Test: BASO #; Value: 0.0; Range: 0.0-0.2; Units: K/mm3; Status: F Test: LARGE UNSTAINED CELL #; Value: 0.2; Range: 0.0-0.4; Units: K/mm3; Status: F Lab Order: MED Profile; SPEC04/16/16 11:51 Test: GLUCOSE, FASTING; Value: 104; Range: 70-105; Units: MG/DL; Status: F Test: BLOOD UREA NITROGEN; Value: 15; Range: 7-18; Units: MG/DL; Status: F Test: CREATININE FOR GFR; Value: 0.95; Range: 0.55-1.02; Units: MG/DL; Status: F Test: GLOMERULAR FILTRATION RATE; Value: > 60.0; Range: >51; Status: F Test: SODIUM LEVEL; Value: 139; Range: 136-145; Units: MEQ/L; Status: F Test: POTASSIUM SERUM; Value: 3.8; Range: 3.5-5.1; Units: MEQ/L; Status: F Test: CHLORIDE LEVEL; Value: 101; Range: 98-107; Units: MEQ/L; Status: F Test: CARBON DIOXIDE LEVEL; Value: 30; Range: 21-32; Units: MEQ/L; Status: F Test: ANION GAP; Value: 8; Range: 8-16; Units: MEQ/L; Status: F Test: CALCIUM LEVEL; Value: 9.3; Range: 8.5-10.1; Units: MG/DL; Status: F Test Note: ; Units are mL/min/1.73 m2 Chronic Kidney Disease Staging per NKF: Stage I & II GFR >=60 Normal to Mildly Decreased Stage III GFR 30-59 Moderately Decreased Stage IV GFR 15-29 Severely Decreased Stage V GFR <15 Very Little GFR Left ESRD GFR <15 on CONVERTER SKIMMER Lab Order: AMYLASE; SPEC04/16/16 11:51 Test: AMYLASE; Value: 74; Range: 25-115; Units: U/L; Status: F Lab Order: LIPASE; SPEC04/16/16 11:51 Test: LIPASE; Value: 169; Range: 73-393; Units: U/L; Status: F Radiology Order: CT Chest Angio R/O PE Test: CT Chest Angio R/O PE REASON FOR EXAMINATION: recent pneumonia, elevated d-dimer; CT pulmonary angiogram: With IV contrast.; ; History: Recent pneumonia. Elevated D-dimer.; ; Comparison studies: August 17, 2013.; ; Contrast dose: 75 cc's of Isovue 370 are administered intravenously.; ; CT technique: Helical scanning is acquired and overlapping 1.5 mm and contiguous; 3 mm axial images are reformatted. In addition, a 3-D work station is deployed; to generate thick slab maximum intensity projection images in sagittal and; coronal imaging projections.; ; CT pulmonary angiographic findings: There is good opacification of the pulmonary; arterial tree and there is no CT evidence of pulmonary embolism. Maximum; intensity projection images show no filling defect or vessel cutoff to suggest a; pulmonary thrombus. The thoracic aorta is normal in caliber and course and; enhances homogeneously. There is no evidence of pleural or pericardial effusion.; No hilar or mediastinal mass or adenopathy is observed. Bilateral breast; augmentation implants are noted in place. There are clips in the right axillary; soft tissues. No adrenal lesion is seen. The lung narvaez show no evidence of; pulmonary nodule, mass, or infiltrate.; ; There is a new fullness in the proximal pancreatic tail with irregular narrowing; of the splenic artery. There is dilation of the distal pancreatic duct in the; tail of the pancreas up to 6-7 mm in diameter. There is some soft tissue edema; or fullness at the anterior inferior margin of this portion of the pancreatic; tail. These findings are worrisome for either focal pancreatitis or pancreatic; malignancy. They are new findings when compared with the August 17, 2013 prior; study.; ; Impression:; ; 1. No CT evidence of pulmonary embolus.; ; 2. Status post bilateral mastectomy with reconstruction and augmentation; implants.; ; 3. No active disease in the chest.; ; 4. New fullness and infiltrative appearance in and around the tail of the; pancreas suspicious for focal pancreatitis or early pancreatic malignancy.; Dedicated pancreatic CT or MRI study recommended. MRCP exam could be considered; as well.; ; ; Signed by; Bill Shook MD 04/16/2016 03:05 P; Outcome: 14:20 Discharge ordered by Provider. ar2 14:36 Discharge Assessment: Patient awake, alert and oriented x 3. No cognitive and/or ja5 functional deficits noted. Patient verbalized understanding of disposition instructions. patient administered narcotics - no. The following High Risk Discharge criteria are identified: None. Discharged to home. Condition: stable. Discharge instructions given to patient, Instructed on discharge instructions, follow up and referral plans. medication usage, spacer for inhaler. CT Study completed. Property :Personal belongings accompany Pt. 14:47 Patient left the ED. ja5 Signatures: Dispatcher [employer] EDMS Sulema Cho, Reg Reg gb Clemente, Cory Quezada RN RN mlb1 Rosalie Salas kt1 Jerod James PA-C PASandra ar2 Zulma Dodge RN RN jc4 Helen Sumner, STAVE HEWER STAVE HEWER ct3 Leisa Urrutia,RN RN Maggy Beckman,RN RN ja5 Chart Complete MTDD
--- NOTE | 2016-04-19 08:36 | EDDOCDS ---
Physician Documentation [facility] Name: Nancy Ortiz Age: 55 yrs Sex: Female : 1960 Arrival Date: 04/16/2016 Time: 09:50 Bed I4 / M4 Private MD: Tanya Kemp A Disposition: 04/16/16 14:20 Discharged to Home/Self Care. Impression: Acute bronchitis, Disease of pancreas, unspecified - unspecified swelling of the tail, incidental finding on CT scan. - Condition is Stable. - Discharge Instructions: Acute Bronchitis, Metered Dose Inhaler with Spacer. - Prescriptions for Prednisone 20 mg Oral Tablet - take 1 tablet by ORAL route as directed Day 1-3: 3 po, day 4-7: 2 po, day 8-10: 1 po; 20 tablet. Mucinex 600 mg - take 1 tablet by ORAL route 2 times per day; 30 tablet. benzonatate 200 mg Oral Capsule - take 1 capsule by ORAL route 3 times per day As needed; 30 capsule. - Medication Reconciliation, Local Pharmacy Hours, Work Release Form - 2 day form. - Follow up: Tanya Kemp; When: 1 week; Reason: Recheck today's complaints. Follow up: Gloria Butts; When: Call to arrange an appointment; Reason: Further diagnostic work-up. Follow up: Emergency Department; When: As needed; Reason: Fever > 102F, Trouble breathing, Worsening of conditions. - Problem is new. - Symptoms have improved. Historical: - Allergies: no known allergies; - Home Meds: 1. Atenolol Oral once daily 2. Simvastatin Oral once daily 3. Ventolin HFA 90 mcg/actuation Nebulizer HFAA 2 puffs every 4-6 hours prn 4. meloxicam 7.5 mg oral tab prn - PMHx: Arthritis; Asthma; breast cancer; Hypertension; Hypercholesterolemia; - PSHx: breast reconstruction bilateral; infusaport insertion and removal; Colonoscopy; - Social history: Smoking status: Patient states was never smoker of tobacco. No barriers to communication noted, The patient speaks fluent Malian, Speaks appropriately for age. - Family history: Not pertinent. - : The pt / caregiver states he / she is not on anticoagulants. Home medication list is obtained from the patient. - Exposure Risk Screening:: None identified. 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 7 in. (170.18 cm) (R); Pain 0/10; 14:35 BP 121 / 62; Pulse 81; Resp 20; Temp 98.4; Pulse Ox 97% on R/A; Pain 0/10; ja5 09:53 Body Mass Index 38.22 (110.68 kg, 170.18 cm) ct3 MDM: 10:44 Financial registration complete. lg 10:54 IV Saline Lock ordered. ar2 10:54 Albuterol-Ipratropium 1 neb Nebulizer every 20 minutes x3 ordered. ar2 10:55 CBC with Diff Ordered. EDMS 10:55 MED Profile Ordered. EDMS 11:49 CT Chest Angio R/O PE Ordered. EDMS 12:30 CBC with Diff Reviewed. ar2 12:30 MED Profile Reviewed. ar2 13:50 MED Profile Reviewed. ar2 13:50 AMYLASE Reviewed. ar2 13:50 LIPASE Reviewed. ar2 13:50 CT Chest Angio R/O PE Reviewed. ar2 14:17 MDI teaching with Spacer ordered. ar2 04/17 11:38 T-Sheet-- Draft Copy was scanned into [employer] and attached to record. gb 11:39 Radiology Report was scanned into [employer] and attached to record. gb Administered Medications: 04/16 11:10 Drug: Albuterol-Ipratropium 1 neb [ipratropium-albuterol 0.5 mg-3 mg(2.5 mg base)/3 mL kt1 nebulization soln (1 neb)] Route: Nebulizer; 11:23 Drug: Albuterol-Ipratropium 1 neb [ipratropium-albuterol 0.5 mg-3 mg(2.5 mg base)/3 mL kt1 nebulization soln (1 neb)] Route: Nebulizer; 11:23 Follow up: Response: Nebulizer completed kt1 Addendum: 04/19/2016 08:34 Radiology Callback: Radiology results faxed to primary care physician/provider. dr danika kemp faxed formal report of cta for fu mlg. Signatures: Dispatcher [employer] EDMS Rayray Villarreal MD MD ml Barnhardt, Gloria, Reg Reg gb Rachel Nunez, Reg Reg lg Cory Cornejo RN RN mlb1 Jerod James, NAZANIN PAMaggy NicholeRN RN ja5 Rosalie Salas kt1 The chart was reviewed and I authenticate all verbal orders and agree with the evaluation and treatment provided.Corrections: (The following items were deleted from the chart) 04/16 13:41 13:35 AMYLASE+LAB ordered. EDMS EDMS 13:41 13:35 LIPASE+LAB ordered. EDMS EDMS Attachments: 04/17 11:38 T-Sheet-- Draft Copy gb MTDD
--- NOTE | 2016-04-19 08:36 | EDDOCDS ---
Physician Documentation [facility] Name: Nancy Ortiz Age: 55 yrs Sex: Female : 1960 Arrival Date: 04/16/2016 Time: 09:50 Bed I4 / M4 Private MD: Tanya Kemp A Disposition: 04/16/16 14:20 Discharged to Home/Self Care. Impression: Acute bronchitis, Disease of pancreas, unspecified - unspecified swelling of the tail, incidental finding on CT scan. - Condition is Stable. - Discharge Instructions: Acute Bronchitis, Metered Dose Inhaler with Spacer. - Prescriptions for Prednisone 20 mg Oral Tablet - take 1 tablet by ORAL route as directed Day 1-3: 3 po, day 4-7: 2 po, day 8-10: 1 po; 20 tablet. Mucinex 600 mg - take 1 tablet by ORAL route 2 times per day; 30 tablet. benzonatate 200 mg Oral Capsule - take 1 capsule by ORAL route 3 times per day As needed; 30 capsule. - Medication Reconciliation, Local Pharmacy Hours, Work Release Form - 2 day form. - Follow up: Tanya Kemp; When: 1 week; Reason: Recheck today's complaints. Follow up: Gloria Butts; When: Call to arrange an appointment; Reason: Further diagnostic work-up. Follow up: Emergency Department; When: As needed; Reason: Fever > 102F, Trouble breathing, Worsening of conditions. - Problem is new. - Symptoms have improved. Historical: - Allergies: no known allergies; - Home Meds: 1. Atenolol Oral once daily 2. Simvastatin Oral once daily 3. Ventolin HFA 90 mcg/actuation Nebulizer HFAA 2 puffs every 4-6 hours prn 4. meloxicam 7.5 mg oral tab prn - PMHx: Arthritis; Asthma; breast cancer; Hypertension; Hypercholesterolemia; - PSHx: breast reconstruction bilateral; infusaport insertion and removal; Colonoscopy; - Social history: Smoking status: Patient states was never smoker of tobacco. No barriers to communication noted, The patient speaks fluent Irish, Speaks appropriately for age. - Family history: Not pertinent. - : The pt / caregiver states he / she is not on anticoagulants. Home medication list is obtained from the patient. - Exposure Risk Screening:: None identified. 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 7 in. (170.18 cm) (R); Pain 0/10; 14:35 BP 121 / 62; Pulse 81; Resp 20; Temp 98.4; Pulse Ox 97% on R/A; Pain 0/10; ja5 09:53 Body Mass Index 38.22 (110.68 kg, 170.18 cm) ct3 MDM: 10:44 Financial registration complete. lg 10:54 IV Saline Lock ordered. ar2 10:54 Albuterol-Ipratropium 1 neb Nebulizer every 20 minutes x3 ordered. ar2 10:55 CBC with Diff Ordered. EDMS 10:55 MED Profile Ordered. EDMS 11:49 CT Chest Angio R/O PE Ordered. EDMS 12:30 CBC with Diff Reviewed. ar2 12:30 MED Profile Reviewed. ar2 13:50 MED Profile Reviewed. ar2 13:50 AMYLASE Reviewed. ar2 13:50 LIPASE Reviewed. ar2 13:50 CT Chest Angio R/O PE Reviewed. ar2 14:17 MDI teaching with Spacer ordered. ar2 04/17 11:38 T-Sheet-- Draft Copy was scanned into [employer] and attached to record. gb 11:39 Radiology Report was scanned into [employer] and attached to record. gb Administered Medications: 04/16 11:10 Drug: Albuterol-Ipratropium 1 neb [ipratropium-albuterol 0.5 mg-3 mg(2.5 mg base)/3 mL kt1 nebulization soln (1 neb)] Route: Nebulizer; 11:23 Drug: Albuterol-Ipratropium 1 neb [ipratropium-albuterol 0.5 mg-3 mg(2.5 mg base)/3 mL kt1 nebulization soln (1 neb)] Route: Nebulizer; 11:23 Follow up: Response: Nebulizer completed kt1 Addendum: 04/19/2016 08:34 Radiology Callback: Radiology results faxed to primary care physician/provider. dr danika kemp faxed formal report of cta for fu mlg. Signatures: Dispatcher [employer] EDMS Rayray Villarreal MD MD ml Barnhardt, Gloria, Reg Reg gb Rachel Nunez, Reg Reg lg oCry Cornejo RN RN mlb1 Jerod James, NAZANIN PAMaggy NicholeRN RN ja5 Rosalie Salas kt1 The chart was reviewed and I authenticate all verbal orders and agree with the evaluation and treatment provided.Corrections: (The following items were deleted from the chart) 04/16 13:41 13:35 AMYLASE+LAB ordered. EDMS EDMS 13:41 13:35 LIPASE+LAB ordered. EDMS EDMS Attachments: 04/17 11:38 T-Sheet-- Draft Copy gb MTDD
--- NOTE | 2016-04-19 08:37 | EDDOCDS ---
Physician Documentation [facility] Name: Nancy Ortiz Age: 55 yrs Sex: Female : 1960 Arrival Date: 04/16/2016 Time: 09:50 Bed I4 / M4 Private MD: Tanya Kemp A Disposition: 04/16/16 14:20 Discharged to Home/Self Care. Impression: Acute bronchitis, Disease of pancreas, unspecified - unspecified swelling of the tail, incidental finding on CT scan. - Condition is Stable. - Discharge Instructions: Acute Bronchitis, Metered Dose Inhaler with Spacer. - Prescriptions for Prednisone 20 mg Oral Tablet - take 1 tablet by ORAL route as directed Day 1-3: 3 po, day 4-7: 2 po, day 8-10: 1 po; 20 tablet. Mucinex 600 mg - take 1 tablet by ORAL route 2 times per day; 30 tablet. benzonatate 200 mg Oral Capsule - take 1 capsule by ORAL route 3 times per day As needed; 30 capsule. - Medication Reconciliation, Local Pharmacy Hours, Work Release Form - 2 day form. - Follow up: Tanya Kemp; When: 1 week; Reason: Recheck today's complaints. Follow up: Gloria Butts; When: Call to arrange an appointment; Reason: Further diagnostic work-up. Follow up: Emergency Department; When: As needed; Reason: Fever > 102F, Trouble breathing, Worsening of conditions. - Problem is new. - Symptoms have improved. Historical: - Allergies: no known allergies; - Home Meds: 1. Atenolol Oral once daily 2. Simvastatin Oral once daily 3. Ventolin HFA 90 mcg/actuation Nebulizer HFAA 2 puffs every 4-6 hours prn 4. meloxicam 7.5 mg oral tab prn - PMHx: Arthritis; Asthma; breast cancer; Hypertension; Hypercholesterolemia; - PSHx: breast reconstruction bilateral; infusaport insertion and removal; Colonoscopy; - Social history: Smoking status: Patient states was never smoker of tobacco. No barriers to communication noted, The patient speaks fluent Moldovan, Speaks appropriately for age. - Family history: Not pertinent. - : The pt / caregiver states he / she is not on anticoagulants. Home medication list is obtained from the patient. - Exposure Risk Screening:: None identified. 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 7 in. (170.18 cm) (R); Pain 0/10; 14:35 BP 121 / 62; Pulse 81; Resp 20; Temp 98.4; Pulse Ox 97% on R/A; Pain 0/10; ja5 09:53 Body Mass Index 38.22 (110.68 kg, 170.18 cm) ct3 MDM: 10:44 Financial registration complete. lg 10:54 IV Saline Lock ordered. ar2 10:54 Albuterol-Ipratropium 1 neb Nebulizer every 20 minutes x3 ordered. ar2 10:55 CBC with Diff Ordered. EDMS 10:55 MED Profile Ordered. EDMS 11:49 CT Chest Angio R/O PE Ordered. EDMS 12:30 CBC with Diff Reviewed. ar2 12:30 MED Profile Reviewed. ar2 13:50 MED Profile Reviewed. ar2 13:50 AMYLASE Reviewed. ar2 13:50 LIPASE Reviewed. ar2 13:50 CT Chest Angio R/O PE Reviewed. ar2 14:17 MDI teaching with Spacer ordered. ar2 04/17 11:38 T-Sheet-- Draft Copy was scanned into [employer] and attached to record. gb 11:39 Radiology Report was scanned into [employer] and attached to record. gb Administered Medications: 04/16 11:10 Drug: Albuterol-Ipratropium 1 neb [ipratropium-albuterol 0.5 mg-3 mg(2.5 mg base)/3 mL kt1 nebulization soln (1 neb)] Route: Nebulizer; 11:23 Drug: Albuterol-Ipratropium 1 neb [ipratropium-albuterol 0.5 mg-3 mg(2.5 mg base)/3 mL kt1 nebulization soln (1 neb)] Route: Nebulizer; 11:23 Follow up: Response: Nebulizer completed kt1 Addendum: 04/19/2016 08:34 Radiology Callback: Radiology results faxed to primary care physician/provider. dr danika kemp faxed formal report of cta for fu mlg. Signatures: Dispatcher [employer] EDMS Rayray Villarreal MD MD ml Barnhardt, Gloria, Reg Reg gb Rachel Nunez, Reg Reg lg Cory Cornejo RN RN mlb1 Jerod James, NAZANIN PAMaggy NicholeRN RN ja5 Rosalie Salas kt1 The chart was reviewed and I authenticate all verbal orders and agree with the evaluation and treatment provided.Corrections: (The following items were deleted from the chart) 04/16 13:41 13:35 AMYLASE+LAB ordered. EDMS EDMS 13:41 13:35 LIPASE+LAB ordered. EDMS EDMS Attachments: 04/17 11:38 T-Sheet-- Draft Copy gb Chart Complete MTDD
--- NOTE | 2016-04-19 08:37 | EDDOCDS ---
Physician Documentation [facility] Name: Nancy Ortiz Age: 55 yrs Sex: Female : 1960 Arrival Date: 04/16/2016 Time: 09:50 Bed I4 / M4 Private MD: Tanya Kemp A Disposition: 04/16/16 14:20 Discharged to Home/Self Care. Impression: Acute bronchitis, Disease of pancreas, unspecified - unspecified swelling of the tail, incidental finding on CT scan. - Condition is Stable. - Discharge Instructions: Acute Bronchitis, Metered Dose Inhaler with Spacer. - Prescriptions for Prednisone 20 mg Oral Tablet - take 1 tablet by ORAL route as directed Day 1-3: 3 po, day 4-7: 2 po, day 8-10: 1 po; 20 tablet. Mucinex 600 mg - take 1 tablet by ORAL route 2 times per day; 30 tablet. benzonatate 200 mg Oral Capsule - take 1 capsule by ORAL route 3 times per day As needed; 30 capsule. - Medication Reconciliation, Local Pharmacy Hours, Work Release Form - 2 day form. - Follow up: Tanya Kemp; When: 1 week; Reason: Recheck today's complaints. Follow up: Gloria Butts; When: Call to arrange an appointment; Reason: Further diagnostic work-up. Follow up: Emergency Department; When: As needed; Reason: Fever > 102F, Trouble breathing, Worsening of conditions. - Problem is new. - Symptoms have improved. Historical: - Allergies: no known allergies; - Home Meds: 1. Atenolol Oral once daily 2. Simvastatin Oral once daily 3. Ventolin HFA 90 mcg/actuation Nebulizer HFAA 2 puffs every 4-6 hours prn 4. meloxicam 7.5 mg oral tab prn - PMHx: Arthritis; Asthma; breast cancer; Hypertension; Hypercholesterolemia; - PSHx: breast reconstruction bilateral; infusaport insertion and removal; Colonoscopy; - Social history: Smoking status: Patient states was never smoker of tobacco. No barriers to communication noted, The patient speaks fluent Dominican, Speaks appropriately for age. - Family history: Not pertinent. - : The pt / caregiver states he / she is not on anticoagulants. Home medication list is obtained from the patient. - Exposure Risk Screening:: None identified. 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 7 in. (170.18 cm) (R); Pain 0/10; 14:35 BP 121 / 62; Pulse 81; Resp 20; Temp 98.4; Pulse Ox 97% on R/A; Pain 0/10; ja5 09:53 Body Mass Index 38.22 (110.68 kg, 170.18 cm) ct3 MDM: 10:44 Financial registration complete. lg 10:54 IV Saline Lock ordered. ar2 10:54 Albuterol-Ipratropium 1 neb Nebulizer every 20 minutes x3 ordered. ar2 10:55 CBC with Diff Ordered. EDMS 10:55 MED Profile Ordered. EDMS 11:49 CT Chest Angio R/O PE Ordered. EDMS 12:30 CBC with Diff Reviewed. ar2 12:30 MED Profile Reviewed. ar2 13:50 MED Profile Reviewed. ar2 13:50 AMYLASE Reviewed. ar2 13:50 LIPASE Reviewed. ar2 13:50 CT Chest Angio R/O PE Reviewed. ar2 14:17 MDI teaching with Spacer ordered. ar2 04/17 11:38 T-Sheet-- Draft Copy was scanned into [employer] and attached to record. gb 11:39 Radiology Report was scanned into [employer] and attached to record. gb Administered Medications: 04/16 11:10 Drug: Albuterol-Ipratropium 1 neb [ipratropium-albuterol 0.5 mg-3 mg(2.5 mg base)/3 mL kt1 nebulization soln (1 neb)] Route: Nebulizer; 11:23 Drug: Albuterol-Ipratropium 1 neb [ipratropium-albuterol 0.5 mg-3 mg(2.5 mg base)/3 mL kt1 nebulization soln (1 neb)] Route: Nebulizer; 11:23 Follow up: Response: Nebulizer completed kt1 Addendum: 04/19/2016 08:34 Radiology Callback: Radiology results faxed to primary care physician/provider. dr danika kemp faxed formal report of cta for fu mlg. Signatures: Dispatcher [employer] EDMS Rayray Villarreal MD MD ml Barnhardt, Gloria, Reg Reg gb Rachel Nunez, Reg Reg lg Cory Cornejo RN RN mlb1 Jerod James, NAZANIN PAMaggy NicholeRN RN ja5 Rosalie Salas kt1 The chart was reviewed and I authenticate all verbal orders and agree with the evaluation and treatment provided.Corrections: (The following items were deleted from the chart) 04/16 13:41 13:35 AMYLASE+LAB ordered. EDMS EDMS 13:41 13:35 LIPASE+LAB ordered. EDMS EDMS Attachments: 04/17 11:38 T-Sheet-- Draft Copy gb Chart Complete MTDD
--- NOTE | 2016-04-19 08:37 | EDDOCDS ---
Nurse's Notes [facility] Name: Nancy Ortiz Age: 55 yrs Sex: Female : 1960 Arrival Date: 04/16/2016 Time: 09:50 Bed I4 / M4 Private MD: Tanya Kemp A Diagnosis: Acute bronchitis;Disease of pancreas, unspecified-unspecified swelling of the tail, incidental finding on CT scan Presentation: 04/16 10:00 Presenting complaint: Patient states: Wheezing, SOB and cough began last night. Adult mlb1 Sepsis Screening: The patient does not have new or worsening altered mentation. Patient's respiratory rate is less than 22. Systolic blood pressure is greater than 100. Patient has a qSOFA score of 0- Negative Sepsis Screen. Suicide/Homicide risk assessment- the patient denies having any suicidal and/or homicidal ideations and does not present with any other emotional, behavioral or mental health complaints. 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 Transition of care: patient was not received from another setting of care. 10:00 Acuity: GOMEZ Level 3 mlb1 10:00 Method Of Arrival: Walkin/Carried/Asstd mlb1 Triage Assessment: 10:02 General: Appears in no apparent distress, Behavior is anxious, cooperative. Pain: mlb1 Denies pain. HIV screening NA for this visit Offered previously. Respiratory: Reports shortness of breath cough that is. 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 Atenolol Oral once daily 2. Simvastatin Oral once daily 3. Ventolin HFA 90 mcg/actuation Nebulizer HFAA 2 puffs every 4-6 hours prn 4. meloxicam 7.5 mg oral tab prn - PMHx: Arthritis; Asthma; breast cancer; Hypertension; Hypercholesterolemia; - PSHx: breast reconstruction bilateral; infusaport insertion and removal; Colonoscopy; - Social history: Smoking status: Patient states was never smoker of tobacco. No barriers to communication noted, The patient speaks fluent Ukrainian, Speaks appropriately for age. - Family history: Not pertinent. - : The pt / caregiver states he / she is not on anticoagulants. Home medication list is obtained from the patient. - Exposure Risk Screening:: None identified. Screenin:18 Screening information is obtained from the patient. Fall risk: No risks identified. ja5 Assistance ADL's: requires no assistance with activities of daily living. Abuse/DV Screen: The patient / caregiver reports he/she is: not in a situation that causes fear, pain or injury. Nutritional screening: On no prescribed diet. home support is adequate. 11:40 Advance Directives: Currently, there is a health care proxy, Taty Link, sister. ja5 There is no active DNR order. There is no living will. There is no Power of Mat Sewer. Assessment: 11:14 General: Appears in no apparent distress, Behavior is appropriate for age, cooperative. ja5 Pain: Denies pain. Neurological: Level of Consciousness is awake, alert, Oriented to person, place, time. Cardiovascular: Capillary refill < 3 seconds Heart tones S1 S2 present. Respiratory: Airway is patent Respiratory effort is even, unlabored, Breath sounds with wheezes inspiratory expiratory. Derm: Skin is intact, Skin is pink, warm & dry. 11:56 General: Pt sitting up on stretcher. No distress noted at this time. Color pink, skin jc4 warm and dry. Respirations easy and full. Warm blankets given. 12:59 General: pt ambulated back from CT. pt appears in no distress at this time. Airway dsf patent respirations easy and unlabored. 13:56 Adult Sepsis Screening: The patient does not have new or worsening altered mentation. dsf Patient's respiratory rate is less than 22. Systolic blood pressure is greater than 100. Patient has a qSOFA score of 0- Negative Sepsis Screen. General: Appears in no apparent distress, Behavior is appropriate for age, cooperative. Neurological: Level of Consciousness is awake, alert. Cardiovascular: Capillary refill < 3 seconds. Respiratory: Airway is patent Respiratory effort is even, unlabored, Respiratory pattern is regular, symmetrical. Derm: Skin is pink, warm & dry. 14:44 General: Appears in no apparent distress, Behavior is appropriate for age, cooperative. ja5 Pain: Denies pain. Neurological: Level of Consciousness is awake, alert, Oriented to person, place, time. Cardiovascular: Capillary refill < 3 seconds. Respiratory: Airway is patent Respiratory effort is even, unlabored, Respiratory pattern is regular, symmetrical, Denies shortness of breath at rest, labored breathing. Derm: Skin is intact, Skin is pink, warm & dry. 14:45 General: Patient states that she is "feeling better" after treatment and plans on ja5 following up so she doesn't have to come back to the ED. Discharge instructions received, patient verbalized understanding. . Vital Signs: 09:53 BP 137 / 64; Pulse 71; Resp 18; Temp 97.8(O); Pulse Ox 100% on R/A; Weight 110.68 kg ct3 (R); Height 5 ft. 7 in. (170.18 cm) (R); Pain 0/10; 14:35 BP 121 / 62; Pulse 81; Resp 20; Temp 98.4; Pulse Ox 97% on R/A; Pain 0/10; ja5 09:53 Body Mass Index 38.22 (110.68 kg, 170.18 cm) ct3 Vitals: 09:53 Log In Time: April 16, 2016 at 09:50. ct3 ED Course: 09:52 Patient visited by Helen Sumner PCA. ct3 09:52 Tanya Kemp is Private Physician. ct3 09:52 Patient moved to Waiting ct3 09:54 Patient moved to Pre RCE ct3 10:00 Patient visited by Cory Cornejo RN. mlb1 10:00 The patient / caregiver is instructed regarding the plan of care and ED course. ja5 10:01 Triage Initiated mlb1 10:02 Patient visited by Cory Cornejo, SHILOH. mlb1 10:02 Patient moved to Triage 3 mlb1 10:43 [facility] ar2 10:43 Jorge Marley MD is Attending Physician. ar2 10:43 Patient visited by Jerod James PA-C. ar2 10:55 Zulma Dodge, RN is Primary Nurse. ct3 10:55 Maggy Badillo,SHILOH is Primary Nurse. ct3 10:55 Patient moved to I4 / M4 ct3 11:22 CBC with Diff Sent. dsf 11:22 MED Profile Sent. dsf 11:30 Missed attempts: 20 gauge X 1 in left hand. ja5 11:47 Patient visited by Jerod James PA-C. ar2 11:56 Patient visited by Zulma Dodge, SHILOH. jc4 12:59 Patient visited by Leisa Urrutia RN. dsf 13:48 CT Chest Angio R/O PE Returned. EDMS 13:56 Patient visited by Leisa Urrutia RN. dsf 14:18 Tanya Kemp is Referral Physician. ar2 14:18 Gloria Butts is Referral Physician. ar2 14:35 Discontinued lock intact, bleeding controlled, pressure dressing applied, No ja5 redness/swelling at site. 14:36 No procedures done that require assistance. ja5 15:32 CT Chest Angio R/O PE Returned. EDMS 04/17 11:38 T-Sheet-- Draft Copy was scanned into [employer] and attached to record. gb 11:39 Radiology Report was scanned into [employer] and attached to record. gb Administered Medications: 04/16 11:10 Drug: Albuterol-Ipratropium 1 neb [ipratropium-albuterol 0.5 mg-3 mg(2.5 mg base)/3 mL kt1 nebulization soln (1 neb)] Route: Nebulizer; 11:23 Drug: Albuterol-Ipratropium 1 neb [ipratropium-albuterol 0.5 mg-3 mg(2.5 mg base)/3 mL kt1 nebulization soln (1 neb)] Route: Nebulizer; 11:23 Follow up: Response: Nebulizer completed kt1 RT: 11:10 Initial Med Neb Given as ordered Patient was instructed and evaluated on procedure. kt1 Respiratory: Breath sounds with wheezes bilaterally. at expiration. 11:23 Subsequent Med Neb Given as ordered Patient tolerated procedure well without adverse kt1 effect. Order Results: Lab Order: CBC with Diff; SPEC'M 04/16/16 11:16 Test: WHITE BLOOD COUNT; Value: 11.5; Range: 4.0-10.0; Abnormal: Above high normal; Units: K/mm3; Status: F Test: RED BLOOD COUNT; Value: 4.19; Range: 4.00-5.40; Units: M/mm3; Status: F Test: HEMOGLOBIN; Value: 12.2; Range: 12.0-16.0; Units: g/dl; Status: F Test: HEMATOCRIT; Value: 37.6; Range: 36.0-47.0; Units: %; Status: F Test: MEAN CORPUSCULAR VOLUME; Value: 89.9; Range: 80.0-96.0; Units: fl; Status: F Test: MEAN CORPUSCULAR HEMOGLOBIN; Value: 29.2; Range: 27.0-33.0; Units: pg; Status: F Test: MEAN CORPUSCULAR HGB CONC; Value: 32.5; Range: 32.0-36.5; Units: g/dl; Status: F Test: RED CELL DISTRIBUTION WIDTH; Value: 12.8; Range: 11.5-14.5; Units: %; Status: F Test: PLATELET COUNT, AUTOMATED; Value: 182; Range: 150-450; Units: k/mm3; Status: F Test: NEUTROPHILS %; Value: 51.0; Range: 36.0-66.0; Units: %; Status: F Test: LYMPH %; Value: 21.1; Range: 24.0-44.0; Abnormal: Below low normal; Units: %; Status: F Test: MONO %; Value: 6.2; Range: 0.0-5.0; Abnormal: Above high normal; Units: %; Status: F Test: EOS %; Value: 19.4; Range: 0.0-3.0; Abnormal: Above high normal; Units: %; Status: F Test: BASO %; Value: 0.3; Range: 0.0-1.0; Units: %; Status: F Test: LARGE UNSTAINED CELL %; Value: 2.0; Range: 0.0-4.0; Units: %; Status: F Test: NEUTROPHILS #; Value: 5.9; Range: 1.8-7.7; Units: K/mm3; Status: F Test: LYMPH #; Value: 2.4; Range: 1.5-4.5; Units: K/mm3; Status: F Test: MONO #; Value: 0.7; Range: 0.0-0.8; Units: K/mm3; Status: F Test: EOS #; Value: 2.2; Range: 0.0-0.50; Abnormal: Above high normal; Units: K/mm3; Status: F Test: BASO #; Value: 0.0; Range: 0.0-0.2; Units: K/mm3; Status: F Test: LARGE UNSTAINED CELL #; Value: 0.2; Range: 0.0-0.4; Units: K/mm3; Status: F Lab Order: MED Profile; SPEC04/16/16 11:51 Test: GLUCOSE, FASTING; Value: 104; Range: 70-105; Units: MG/DL; Status: F Test: BLOOD UREA NITROGEN; Value: 15; Range: 7-18; Units: MG/DL; Status: F Test: CREATININE FOR GFR; Value: 0.95; Range: 0.55-1.02; Units: MG/DL; Status: F Test: GLOMERULAR FILTRATION RATE; Value: > 60.0; Range: >51; Status: F Test: SODIUM LEVEL; Value: 139; Range: 136-145; Units: MEQ/L; Status: F Test: POTASSIUM SERUM; Value: 3.8; Range: 3.5-5.1; Units: MEQ/L; Status: F Test: CHLORIDE LEVEL; Value: 101; Range: 98-107; Units: MEQ/L; Status: F Test: CARBON DIOXIDE LEVEL; Value: 30; Range: 21-32; Units: MEQ/L; Status: F Test: ANION GAP; Value: 8; Range: 8-16; Units: MEQ/L; Status: F Test: CALCIUM LEVEL; Value: 9.3; Range: 8.5-10.1; Units: MG/DL; Status: F Test Note: ; Units are mL/min/1.73 m2 Chronic Kidney Disease Staging per NKF: Stage I & II GFR >=60 Normal to Mildly Decreased Stage III GFR 30-59 Moderately Decreased Stage IV GFR 15-29 Severely Decreased Stage V GFR <15 Very Little GFR Left ESRD 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 Elevated D-dimer.; ; Comparison studies: August 17, 2013.; ; Contrast dose: 75 cc's of Isovue 370 are administered intravenously.; ; CT technique: Helical scanning is acquired and overlapping 1.5 mm and contiguous; 3 mm axial images are reformatted. In addition, a 3-D work station is deployed; to generate thick slab maximum intensity projection images in sagittal and; coronal imaging projections.; ; CT pulmonary angiographic findings: There is good opacification of the pulmonary; arterial tree and there is no CT evidence of pulmonary embolism. Maximum; intensity projection images show no filling defect or vessel cutoff to suggest a; pulmonary thrombus. The thoracic aorta is normal in caliber and course and; enhances homogeneously. There is no evidence of pleural or pericardial effusion.; No hilar or mediastinal mass or adenopathy is observed. Bilateral breast; augmentation implants are noted in place. There are clips in the right axillary; soft tissues. No adrenal lesion is seen. The lung narvaez show no evidence of; pulmonary nodule, mass, or infiltrate.; ; There is a new fullness in the proximal pancreatic tail with irregular narrowing; of the splenic artery. There is dilation of the distal pancreatic duct in the; tail of the pancreas up to 6-7 mm in diameter. There is some soft tissue edema; or fullness at the anterior inferior margin of this portion of the pancreatic; tail. These findings are worrisome for either focal pancreatitis or pancreatic; malignancy. They are new findings when compared with the August 17, 2013 prior; study.; ; Impression:; ; 1. No CT evidence of pulmonary embolus.; ; 2. Status post bilateral mastectomy with reconstruction and augmentation; implants.; ; 3. No active disease in the chest.; ; 4. New fullness and infiltrative appearance in and around the tail of the; pancreas suspicious for focal pancreatitis or early pancreatic malignancy.; Dedicated pancreatic CT or MRI study recommended. MRCP exam could be considered; as well.; ; ; Signed by; Bill Shook MD 04/16/2016 03:05 P; Outcome: 14:20 Discharge ordered by Provider. ar2 14:36 Discharge Assessment: Patient awake, alert and oriented x 3. No cognitive and/or ja5 functional deficits noted. Patient verbalized understanding of disposition instructions. patient administered narcotics - no. The following High Risk Discharge criteria are identified: None. Discharged to home. Condition: stable. Discharge instructions given to patient, Instructed on discharge instructions, follow up and referral plans. medication usage, spacer for inhaler. CT Study completed. Property :Personal belongings accompany Pt. 14:47 Patient left the ED. ja5 Signatures: Dispatcher [employer] EDMS Sulema Cho, Reg Reg gb Clemente, Cory Quezada RN RN mlb1 Rosalie Salas kt1 Jerod James PA-C PASandra ar2 Zulma Dodge RN RN jc4 Helen Sumner, INTERN INTERN ct3 Leisa Urrutia,RN RN Maggy Beckman,RN RN ja5 Chart Complete MTDD
--- NOTE | 2016-04-19 08:40 | EDDOCDS ---
Physician Documentation [facility] Name: Nancy Ortiz Age: 55 yrs Sex: Female : 1960 Arrival Date: 04/16/2016 Time: 09:50 Bed I4 / M4 Private MD: Tanya Kemp A Disposition: 04/16/16 14:20 Discharged to Home/Self Care. Impression: Acute bronchitis, Disease of pancreas, unspecified - unspecified swelling of the tail, incidental finding on CT scan. - Condition is Stable. - Discharge Instructions: Acute Bronchitis, Metered Dose Inhaler with Spacer. - Prescriptions for Prednisone 20 mg Oral Tablet - take 1 tablet by ORAL route as directed Day 1-3: 3 po, day 4-7: 2 po, day 8-10: 1 po; 20 tablet. Mucinex 600 mg - take 1 tablet by ORAL route 2 times per day; 30 tablet. benzonatate 200 mg Oral Capsule - take 1 capsule by ORAL route 3 times per day As needed; 30 capsule. - Medication Reconciliation, Local Pharmacy Hours, Work Release Form - 2 day form. - Follow up: Tanya Kemp; When: 1 week; Reason: Recheck today's complaints. Follow up: Gloria Butts; When: Call to arrange an appointment; Reason: Further diagnostic work-up. Follow up: Emergency Department; When: As needed; Reason: Fever > 102F, Trouble breathing, Worsening of conditions. - Problem is new. - Symptoms have improved. Historical: - Allergies: no known allergies; - Home Meds: 1. Atenolol Oral once daily 2. Simvastatin Oral once daily 3. Ventolin HFA 90 mcg/actuation Nebulizer HFAA 2 puffs every 4-6 hours prn 4. meloxicam 7.5 mg oral tab prn - PMHx: Arthritis; Asthma; breast cancer; Hypertension; Hypercholesterolemia; - PSHx: breast reconstruction bilateral; infusaport insertion and removal; Colonoscopy; - Social history: Smoking status: Patient states was never smoker of tobacco. No barriers to communication noted, The patient speaks fluent Bangladeshi, Speaks appropriately for age. - Family history: Not pertinent. - : The pt / caregiver states he / she is not on anticoagulants. Home medication list is obtained from the patient. - Exposure Risk Screening:: None identified. 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 7 in. (170.18 cm) (R); Pain 0/10; 14:35 BP 121 / 62; Pulse 81; Resp 20; Temp 98.4; Pulse Ox 97% on R/A; Pain 0/10; ja5 09:53 Body Mass Index 38.22 (110.68 kg, 170.18 cm) ct3 MDM: 10:44 Financial registration complete. lg 10:54 IV Saline Lock ordered. ar2 10:54 Albuterol-Ipratropium 1 neb Nebulizer every 20 minutes x3 ordered. ar2 10:55 CBC with Diff Ordered. EDMS 10:55 MED Profile Ordered. EDMS 11:49 CT Chest Angio R/O PE Ordered. EDMS 12:30 CBC with Diff Reviewed. ar2 12:30 MED Profile Reviewed. ar2 13:50 MED Profile Reviewed. ar2 13:50 AMYLASE Reviewed. ar2 13:50 LIPASE Reviewed. ar2 13:50 CT Chest Angio R/O PE Reviewed. ar2 14:17 MDI teaching with Spacer ordered. ar2 04/17 11:38 T-Sheet-- Draft Copy was scanned into [employer] and attached to record. gb 11:39 Radiology Report was scanned into [employer] and attached to record. gb Administered Medications: 04/16 11:10 Drug: Albuterol-Ipratropium 1 neb [ipratropium-albuterol 0.5 mg-3 mg(2.5 mg base)/3 mL kt1 nebulization soln (1 neb)] Route: Nebulizer; 11:23 Drug: Albuterol-Ipratropium 1 neb [ipratropium-albuterol 0.5 mg-3 mg(2.5 mg base)/3 mL kt1 nebulization soln (1 neb)] Route: Nebulizer; 11:23 Follow up: Response: Nebulizer completed kt1 Addendum: 04/19/2016 08:34 Radiology Callback: Radiology results faxed to primary care physician/provider. dr danika kemp faxed formal report of cta for fu mlg. 08:40 Radiology Callback: Radiology results faxed to primary care physician/provider. w dr danika kemp. she is aware and requesting i fax to dr benji pope [facility] [place]. Signatures: Dispatcher [employer] EDMS Rayray Villarreal MD MD ml Barnhardt, Gloria, Reg Reg gb Rachel Nunez, Reg Reg lg Cory Cornejo RN RN mlb1 Jerod James PA-C PA-C ar2 Maggy Badillo RN RN ja5 Rosalie Salas kt1 The chart was reviewed and I authenticate all verbal orders and agree with the evaluation and treatment provided.Corrections: (The following items were deleted from the chart) 04/16 13:41 13:35 AMYLASE+LAB ordered. EDMS EDMS 13:41 13:35 LIPASE+LAB ordered. EDMS EDMS Attachments: 04/17 11:38 T-Sheet-- Draft Copy gb MTDD
--- NOTE | 2016-04-19 08:40 | EDDOCDS ---
Physician Documentation [facility] Name: Nancy Ortiz Age: 55 yrs Sex: Female : 1960 Arrival Date: 04/16/2016 Time: 09:50 Bed I4 / M4 Private MD: Tanya Kemp A Disposition: 04/16/16 14:20 Discharged to Home/Self Care. Impression: Acute bronchitis, Disease of pancreas, unspecified - unspecified swelling of the tail, incidental finding on CT scan. - Condition is Stable. - Discharge Instructions: Acute Bronchitis, Metered Dose Inhaler with Spacer. - Prescriptions for Prednisone 20 mg Oral Tablet - take 1 tablet by ORAL route as directed Day 1-3: 3 po, day 4-7: 2 po, day 8-10: 1 po; 20 tablet. Mucinex 600 mg - take 1 tablet by ORAL route 2 times per day; 30 tablet. benzonatate 200 mg Oral Capsule - take 1 capsule by ORAL route 3 times per day As needed; 30 capsule. - Medication Reconciliation, Local Pharmacy Hours, Work Release Form - 2 day form. - Follow up: Tanya Kemp; When: 1 week; Reason: Recheck today's complaints. Follow up: Gloria Butts; When: Call to arrange an appointment; Reason: Further diagnostic work-up. Follow up: Emergency Department; When: As needed; Reason: Fever > 102F, Trouble breathing, Worsening of conditions. - Problem is new. - Symptoms have improved. Historical: - Allergies: no known allergies; - Home Meds: 1. Atenolol Oral once daily 2. Simvastatin Oral once daily 3. Ventolin HFA 90 mcg/actuation Nebulizer HFAA 2 puffs every 4-6 hours prn 4. meloxicam 7.5 mg oral tab prn - PMHx: Arthritis; Asthma; breast cancer; Hypertension; Hypercholesterolemia; - PSHx: breast reconstruction bilateral; infusaport insertion and removal; Colonoscopy; - Social history: Smoking status: Patient states was never smoker of tobacco. No barriers to communication noted, The patient speaks fluent Iranian, Speaks appropriately for age. - Family history: Not pertinent. - : The pt / caregiver states he / she is not on anticoagulants. Home medication list is obtained from the patient. - Exposure Risk Screening:: None identified. 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 7 in. (170.18 cm) (R); Pain 0/10; 14:35 BP 121 / 62; Pulse 81; Resp 20; Temp 98.4; Pulse Ox 97% on R/A; Pain 0/10; ja5 09:53 Body Mass Index 38.22 (110.68 kg, 170.18 cm) ct3 MDM: 10:44 Financial registration complete. lg 10:54 IV Saline Lock ordered. ar2 10:54 Albuterol-Ipratropium 1 neb Nebulizer every 20 minutes x3 ordered. ar2 10:55 CBC with Diff Ordered. EDMS 10:55 MED Profile Ordered. EDMS 11:49 CT Chest Angio R/O PE Ordered. EDMS 12:30 CBC with Diff Reviewed. ar2 12:30 MED Profile Reviewed. ar2 13:50 MED Profile Reviewed. ar2 13:50 AMYLASE Reviewed. ar2 13:50 LIPASE Reviewed. ar2 13:50 CT Chest Angio R/O PE Reviewed. ar2 14:17 MDI teaching with Spacer ordered. ar2 04/17 11:38 T-Sheet-- Draft Copy was scanned into [employer] and attached to record. gb 11:39 Radiology Report was scanned into [employer] and attached to record. gb Administered Medications: 04/16 11:10 Drug: Albuterol-Ipratropium 1 neb [ipratropium-albuterol 0.5 mg-3 mg(2.5 mg base)/3 mL kt1 nebulization soln (1 neb)] Route: Nebulizer; 11:23 Drug: Albuterol-Ipratropium 1 neb [ipratropium-albuterol 0.5 mg-3 mg(2.5 mg base)/3 mL kt1 nebulization soln (1 neb)] Route: Nebulizer; 11:23 Follow up: Response: Nebulizer completed kt1 Addendum: 04/19/2016 08:34 Radiology Callback: Radiology results faxed to primary care physician/provider. dr danika kemp faxed formal report of cta for fu mlg. 08:40 Radiology Callback: Radiology results faxed to primary care physician/provider. w dr danika kemp. she is aware and requesting i fax [place] benji pope [facility] [place] Signatures: Dispatcher [employer] EDMS Rayray Villarreal MD MD ml Barnhardt, Gloria, Reg Reg gb Rachel Nunez, Reg Reg lg Cory Cornejo RN RN mlb1 Jerod James PA-C PA-C ar2 Maggy Badillo RN RN ja5 Rosalie Salas kt1 The chart was reviewed and I authenticate all verbal orders and agree with the evaluation and treatment provided.Corrections: (The following items were deleted from the chart) 04/16 13:41 13:35 AMYLASE+LAB ordered. EDMS EDMS 13:41 13:35 LIPASE+LAB ordered. EDMS EDMS Attachments: 04/17 11:38 T-Sheet-- Draft Copy gb MTDD
--- NOTE | 2016-04-19 08:40 | EDDOCDS ---
Nurse's Notes [facility] Name: Nancy Ortiz Age: 55 yrs Sex: Female : 1960 Arrival Date: 04/16/2016 Time: 09:50 Bed I4 / M4 Private MD: Tanya Kemp A Diagnosis: Acute bronchitis;Disease of pancreas, unspecified-unspecified swelling of the tail, incidental finding on CT scan Presentation: 04/16 10:00 Presenting complaint: Patient states: Wheezing, SOB and cough began last night. Adult mlb1 Sepsis Screening: The patient does not have new or worsening altered mentation. Patient's respiratory rate is less than 22. Systolic blood pressure is greater than 100. Patient has a qSOFA score of 0- Negative Sepsis Screen. Suicide/Homicide risk assessment- the patient denies having any suicidal and/or homicidal ideations and does not present with any other emotional, behavioral or mental health complaints. Status: Patient is not a automotive fuel injection servicer or dependent. Transition of care: patient was not received from another setting of care. 10:00 Acuity: GOMEZ Level 3 mlb1 10:00 Method Of Arrival: Walkin/Carried/Asstd mlb1 Triage Assessment: 10:02 General: Appears in no apparent distress, Behavior is anxious, cooperative. Pain: mlb1 Denies pain. HIV screening NA for this visit Offered previously. Respiratory: Reports shortness of breath cough that is. 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 Atenolol Oral once daily 2. Simvastatin Oral once daily 3. Ventolin HFA 90 mcg/actuation Nebulizer HFAA 2 puffs every 4-6 hours prn 4. meloxicam 7.5 mg oral tab prn - PMHx: Arthritis; Asthma; breast cancer; Hypertension; Hypercholesterolemia; - PSHx: breast reconstruction bilateral; infusaport insertion and removal; Colonoscopy; - Social history: Smoking status: Patient states was never smoker of tobacco. No barriers to communication noted, The patient speaks fluent [place] Citizen, Speaks appropriately for age. - Family history: Not pertinent. - : The pt / caregiver states he / she is not on anticoagulants. Home medication list is obtained from the patient. - Exposure Risk Screening:: None identified. Screenin:18 Screening information is obtained from the patient. Fall risk: No risks identified. ja5 Assistance ADL's: requires no assistance with activities of daily living. Abuse/DV Screen: The patient / caregiver reports he/she is: not in a situation that causes fear, pain or injury. Nutritional screening: On no prescribed diet. home support is adequate. 11:40 Advance Directives: Currently, there is a health care proxy, Taty Link, sister. ja5 There is no active DNR order. There is no living will. There is no Power of Operations Controller. Assessment: 11:14 General: Appears in no apparent distress, Behavior is appropriate for age, cooperative. ja5 Pain: Denies pain. Neurological: Level of Consciousness is awake, alert, Oriented to person, place, time. Cardiovascular: Capillary refill < 3 seconds Heart tones S1 S2 present. Respiratory: Airway is patent Respiratory effort is even, unlabored, Breath sounds with wheezes inspiratory expiratory. Derm: Skin is intact, Skin is pink, warm & dry. 11:56 General: Pt sitting up on stretcher. No distress noted at this time. Color pink, skin jc4 warm and dry. Respirations easy and full. Warm blankets given. 12:59 General: pt ambulated back from CT. pt appears in no distress at this time. Airway dsf patent respirations easy and unlabored. 13:56 Adult Sepsis Screening: The patient does not have new or worsening altered mentation. dsf Patient's respiratory rate is less than 22. Systolic blood pressure is greater than 100. Patient has a qSOFA score of 0- Negative Sepsis Screen. General: Appears in no apparent distress, Behavior is appropriate for age, cooperative. Neurological: Level of Consciousness is awake, alert. Cardiovascular: Capillary refill < 3 seconds. Respiratory: Airway is patent Respiratory effort is even, unlabored, Respiratory pattern is regular, symmetrical. Derm: Skin is pink, warm & dry. 14:44 General: Appears in no apparent distress, Behavior is appropriate for age, cooperative. ja5 Pain: Denies pain. Neurological: Level of Consciousness is awake, alert, Oriented to person, place, time. Cardiovascular: Capillary refill < 3 seconds. Respiratory: Airway is patent Respiratory effort is even, unlabored, Respiratory pattern is regular, symmetrical, Denies shortness of breath at rest, labored breathing. Derm: Skin is intact, Skin is pink, warm & dry. 14:45 General: Patient states that she is "feeling better" after treatment and plans on ja5 following up so she doesn't have to come back to the ED. Discharge instructions received, patient verbalized understanding. . Vital Signs: 09:53 BP 137 / 64; Pulse 71; Resp 18; Temp 97.8(O); Pulse Ox 100% on R/A; Weight 110.68 kg ct3 (R); Height 5 ft. 7 in. (170.18 cm) (R); Pain 0/10; 14:35 BP 121 / 62; Pulse 81; Resp 20; Temp 98.4; Pulse Ox 97% on R/A; Pain 0/10; ja5 09:53 Body Mass Index 38.22 (110.68 kg, 170.18 cm) ct3 Vitals: 09:53 Log In Time: April 16, 2016 at 09:50. ct3 ED Course: 09:52 Patient visited by Helen Sumner PCA. ct3 09:52 Tanya Kemp is Private Physician. ct3 09:52 Patient moved to Waiting ct3 09:54 Patient moved to Pre RCE ct3 10:00 Patient visited by Cory Cornejo RN. mlb1 10:00 The patient / caregiver is instructed regarding the plan of care and ED course. ja5 10:01 Triage Initiated mlb1 10:02 Patient visited by Cory Cornejo, SHILOH. mlb1 10:02 Patient moved to Triage 3 mlb1 10:43 Jerod [facility]-C [facility] ar2 10:43 Jorge Marley MD is Attending Physician. ar2 10:43 Patient visited by Jerod James PA-C. ar2 10:55 Zulma Dodge, RN is Primary Nurse. ct3 10:55 Maggy Badillo,SHILOH is Primary Nurse. ct3 10:55 Patient moved to I4 / M4 ct3 11:22 CBC with Diff Sent. dsf 11:22 MED Profile Sent. dsf 11:30 Missed attempts: 20 gauge X 1 in left hand. ja5 11:47 Patient visited by Jerod James PA-C. ar2 11:56 Patient visited by Zulma Dodge, SHILOH. jc4 12:59 Patient visited by Leisa Urrutia RN. dsf 13:48 CT Chest Angio R/O PE Returned. EDMS 13:56 Patient visited by Leisa Urrutia RN. dsf 14:18 Tanya Kemp is Referral Physician. ar2 14:18 Gloria Butts is Referral Physician. ar2 14:35 Discontinued lock intact, bleeding controlled, pressure dressing applied, No ja5 redness/swelling at site. 14:36 No procedures done that require assistance. ja5 15:32 CT Chest Angio R/O PE Returned. EDMS 04/17 11:38 T-Sheet-- Draft Copy was scanned into [employer] and attached to record. gb 11:39 Radiology Report was scanned into [employer] and attached to record. gb Administered Medications: 04/16 11:10 Drug: Albuterol-Ipratropium 1 neb [ipratropium-albuterol 0.5 mg-3 mg(2.5 mg base)/3 mL kt1 nebulization soln (1 neb)] Route: Nebulizer; 11:23 Drug: Albuterol-Ipratropium 1 neb [ipratropium-albuterol 0.5 mg-3 mg(2.5 mg base)/3 mL kt1 nebulization soln (1 neb)] Route: Nebulizer; 11:23 Follow up: Response: Nebulizer completed kt1 RT: 11:10 Initial Med Neb Given as ordered Patient was instructed and evaluated on procedure. kt1 Respiratory: Breath sounds with wheezes bilaterally. at expiration. 11:23 Subsequent Med Neb Given as ordered Patient tolerated procedure well without adverse kt1 effect. Order Results: Lab Order: CBC with Diff; SPEC'M 04/16/16 11:16 Test: WHITE BLOOD COUNT; Value: 11.5; Range: 4.0-10.0; Abnormal: Above high normal; Units: K/mm3; Status: F Test: RED BLOOD COUNT; Value: 4.19; Range: 4.00-5.40; Units: M/mm3; Status: F Test: HEMOGLOBIN; Value: 12.2; Range: 12.0-16.0; Units: g/dl; Status: F Test: HEMATOCRIT; Value: 37.6; Range: 36.0-47.0; Units: %; Status: F Test: MEAN CORPUSCULAR VOLUME; Value: 89.9; Range: 80.0-96.0; Units: fl; Status: F Test: MEAN CORPUSCULAR HEMOGLOBIN; Value: 29.2; Range: 27.0-33.0; Units: pg; Status: F Test: MEAN CORPUSCULAR HGB CONC; Value: 32.5; Range: 32.0-36.5; Units: g/dl; Status: F Test: RED CELL DISTRIBUTION WIDTH; Value: 12.8; Range: 11.5-14.5; Units: %; Status: F Test: PLATELET COUNT, AUTOMATED; Value: 182; Range: 150-450; Units: k/mm3; Status: F Test: NEUTROPHILS %; Value: 51.0; Range: 36.0-66.0; Units: %; Status: F Test: LYMPH %; Value: 21.1; Range: 24.0-44.0; Abnormal: Below low normal; Units: %; Status: F Test: MONO %; Value: 6.2; Range: 0.0-5.0; Abnormal: Above high normal; Units: %; Status: F Test: EOS %; Value: 19.4; Range: 0.0-3.0; Abnormal: Above high normal; Units: %; Status: F Test: BASO %; Value: 0.3; Range: 0.0-1.0; Units: %; Status: F Test: LARGE UNSTAINED CELL %; Value: 2.0; Range: 0.0-4.0; Units: %; Status: F Test: NEUTROPHILS #; Value: 5.9; Range: 1.8-7.7; Units: K/mm3; Status: F Test: LYMPH #; Value: 2.4; Range: 1.5-4.5; Units: K/mm3; Status: F Test: MONO #; Value: 0.7; Range: 0.0-0.8; Units: K/mm3; Status: F Test: EOS #; Value: 2.2; Range: 0.0-0.50; Abnormal: Above high normal; Units: K/mm3; Status: F Test: BASO #; Value: 0.0; Range: 0.0-0.2; Units: K/mm3; Status: F Test: LARGE UNSTAINED CELL #; Value: 0.2; Range: 0.0-0.4; Units: K/mm3; Status: F Lab Order: MED Profile; SPEC04/16/16 11:51 Test: GLUCOSE, FASTING; Value: 104; Range: 70-105; Units: MG/DL; Status: F Test: BLOOD UREA NITROGEN; Value: 15; Range: 7-18; Units: MG/DL; Status: F Test: CREATININE FOR GFR; Value: 0.95; Range: 0.55-1.02; Units: MG/DL; Status: F Test: GLOMERULAR FILTRATION RATE; Value: > 60.0; Range: >51; Status: F Test: SODIUM LEVEL; Value: 139; Range: 136-145; Units: MEQ/L; Status: F Test: POTASSIUM SERUM; Value: 3.8; Range: 3.5-5.1; Units: MEQ/L; Status: F Test: CHLORIDE LEVEL; Value: 101; Range: 98-107; Units: MEQ/L; Status: F Test: CARBON DIOXIDE LEVEL; Value: 30; Range: 21-32; Units: MEQ/L; Status: F Test: ANION GAP; Value: 8; Range: 8-16; Units: MEQ/L; Status: F Test: CALCIUM LEVEL; Value: 9.3; Range: 8.5-10.1; Units: MG/DL; Status: F Test Note: ; Units are mL/min/1.73 m2 Chronic Kidney Disease Staging per NKF: Stage I & II GFR >=60 Normal to Mildly Decreased Stage III GFR 30-59 Moderately Decreased Stage IV GFR 15-29 Severely Decreased Stage V GFR <15 Very Little GFR Left ESRD GFR <15 on [employer] Lab Order: AMYLASE; SPEC04/16/16 11:51 Test: AMYLASE; Value: 74; Range: 25-115; Units: U/L; Status: F Lab Order: LIPASE; SPEC04/16/16 11:51 Test: LIPASE; Value: 169; Range: 73-393; Units: U/L; Status: F Radiology Order: CT Chest Angio R/O PE Test: CT Chest Angio R/O PE REASON FOR EXAMINATION: recent pneumonia, elevated d-dimer; CT pulmonary angiogram: With IV contrast.; ; History: Recent pneumonia. Elevated D-dimer.; ; Comparison studies: August 17, 2013.; ; Contrast dose: 75 cc's of Isovue 370 are administered intravenously.; ; CT technique: Helical scanning is acquired and overlapping 1.5 mm and contiguous; 3 mm axial images are reformatted. In addition, a 3-D work station is deployed; to generate thick slab maximum intensity projection images in sagittal and; coronal imaging projections.; ; CT pulmonary angiographic findings: There is good opacification of the pulmonary; arterial tree and there is no CT evidence of pulmonary embolism. Maximum; intensity projection images show no filling defect or vessel cutoff to suggest a; pulmonary thrombus. The thoracic aorta is normal in caliber and course and; enhances homogeneously. There is no evidence of pleural or pericardial effusion.; No hilar or mediastinal mass or adenopathy is observed. Bilateral breast; augmentation implants are noted in place. There are clips in the right axillary; soft tissues. No adrenal lesion is seen. The lung narvaez show no evidence of; pulmonary nodule, mass, or infiltrate.; ; There is a new fullness in the proximal pancreatic tail with irregular narrowing; of the splenic artery. There is dilation of the distal pancreatic duct in the; tail of the pancreas up to 6-7 mm in diameter. There is some soft tissue edema; or fullness at the anterior inferior margin of this portion of the pancreatic; tail. These findings are worrisome for either focal pancreatitis or pancreatic; malignancy. They are new findings when compared with the August 17, 2013 prior; study.; ; Impression:; ; 1. No CT evidence of pulmonary embolus.; ; 2. Status post bilateral mastectomy with reconstruction and augmentation; implants.; ; 3. No active disease in the chest.; ; 4. New fullness and infiltrative appearance in and around the tail of the; pancreas suspicious for focal pancreatitis or early pancreatic malignancy.; Dedicated pancreatic CT or MRI study recommended. MRCP exam could be considered; as well.; ; ; Signed by; Bill Shook MD 04/16/2016 03:05 P; Outcome: 14:20 Discharge ordered by Provider. ar2 14:36 Discharge Assessment: Patient awake, alert and oriented x 3. No cognitive and/or ja5 functional deficits noted. Patient verbalized understanding of disposition instructions. patient administered narcotics - no. The following High Risk Discharge criteria are identified: None. Discharged to home. Condition: stable. Discharge instructions given to patient, Instructed on discharge instructions, follow up and referral plans. medication usage, spacer for inhaler. CT Study completed. Property :Personal belongings accompany Pt. 14:47 Patient left the ED. ja5 Signatures: Dispatcher [employer] EDMS Sulema Cho, Reg Reg gb Clemente, Cory Quezada RN RN mlb1 Rosalie Salas kt1 Jerod James PA-C PASandra ar2 Zulma Dodge RN RN jc4 Helen Sumner, [facility]IC THERAPIST ct3 Leisa Urrutia,RN RN Maggy BeckmanRN RN ja5 MTDD
--- NOTE | 2016-04-19 08:42 | EDDOCDS ---
Physician Documentation [facility] Name: Nancy Ortiz Age: 55 yrs Sex: Female : 1960 Arrival Date: 04/16/2016 Time: 09:50 Bed I4 / M4 Private MD: Tanya Kemp A Disposition: 04/16/16 14:20 Discharged to Home/Self Care. Impression: Acute bronchitis, Disease of pancreas, unspecified - unspecified swelling of the tail, incidental finding on CT scan. - Condition is Stable. - Discharge Instructions: Acute Bronchitis, Metered Dose Inhaler with Spacer. - Prescriptions for Prednisone 20 mg Oral Tablet - take 1 tablet by ORAL route as directed Day 1-3: 3 po, day 4-7: 2 po, day 8-10: 1 po; 20 tablet. Mucinex 600 mg - take 1 tablet by ORAL route 2 times per day; 30 tablet. benzonatate 200 mg Oral Capsule - take 1 capsule by ORAL route 3 times per day As needed; 30 capsule. - Medication Reconciliation, Local Pharmacy Hours, Work Release Form - 2 day form. - Follow up: Tanya Kemp; When: 1 week; Reason: Recheck today's complaints. Follow up: Gloria Butts; When: Call to arrange an appointment; Reason: Further diagnostic work-up. Follow up: Emergency Department; When: As needed; Reason: Fever > 102F, Trouble breathing, Worsening of conditions. - Problem is new. - Symptoms have improved. Historical: - Allergies: no known allergies; - Home Meds: 1. Atenolol Oral once daily 2. Simvastatin Oral once daily 3. Ventolin HFA 90 mcg/actuation Nebulizer HFAA 2 puffs every 4-6 hours prn 4. meloxicam 7.5 mg oral tab prn - PMHx: Arthritis; Asthma; breast cancer; Hypertension; Hypercholesterolemia; - PSHx: breast reconstruction bilateral; infusaport insertion and removal; Colonoscopy; - Social history: Smoking status: Patient states was never smoker of tobacco. No barriers to communication noted, The patient speaks fluent Tuvaluan, Speaks appropriately for age. - Family history: Not pertinent. - : The pt / caregiver states he / she is not on anticoagulants. Home medication list is obtained from the patient. - Exposure Risk Screening:: None identified. 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 7 in. (170.18 cm) (R); Pain 0/10; 14:35 BP 121 / 62; Pulse 81; Resp 20; Temp 98.4; Pulse Ox 97% on R/A; Pain 0/10; ja5 09:53 Body Mass Index 38.22 (110.68 kg, 170.18 cm) ct3 MDM: 10:44 Financial registration complete. lg 10:54 IV Saline Lock ordered. ar2 10:54 Albuterol-Ipratropium 1 neb Nebulizer every 20 minutes x3 ordered. ar2 10:55 CBC with Diff Ordered. EDMS 10:55 MED Profile Ordered. EDMS 11:49 CT Chest Angio R/O PE Ordered. EDMS 12:30 CBC with Diff Reviewed. ar2 12:30 MED Profile Reviewed. ar2 13:50 MED Profile Reviewed. ar2 13:50 AMYLASE Reviewed. ar2 13:50 LIPASE Reviewed. ar2 13:50 CT Chest Angio R/O PE Reviewed. ar2 14:17 MDI teaching with Spacer ordered. ar2 04/17 11:38 T-Sheet-- Draft Copy was scanned into [employer] and attached to record. gb 11:39 Radiology Report was scanned into [employer] and attached to record. gb Administered Medications: 04/16 11:10 Drug: Albuterol-Ipratropium 1 neb [ipratropium-albuterol 0.5 mg-3 mg(2.5 mg base)/3 mL kt1 nebulization soln (1 neb)] Route: Nebulizer; 11:23 Drug: Albuterol-Ipratropium 1 neb [ipratropium-albuterol 0.5 mg-3 mg(2.5 mg base)/3 mL kt1 nebulization soln (1 neb)] Route: Nebulizer; 11:23 Follow up: Response: Nebulizer completed kt1 Addendum: 04/19/2016 08:34 Radiology Callback: Radiology results faxed to primary care physician/provider. dr danika kemp faxed formal report of cta for fu mlg. 08:40 Radiology Callback: Radiology results faxed to primary care physician/provider. w dr danika kemp. she is aware and requesting i fax to dr [facility] [place]. Signatures: Dispatcher [employer] EDMS Rayray Villarreal MD MD ml Barnhardt, Gloria, Reg Reg gb Rachel Nunez, Reg Reg lg Cory Cornejo RN RN mlb1 Jerod James PA-C PA-C ar2 Maggy Badillo RN RN ja5 Rosalie Salas kt1 The chart was reviewed and I authenticate all verbal orders and agree with the evaluation and treatment provided.Corrections: (The following items were deleted from the chart) 04/16 13:41 13:35 AMYLASE+LAB ordered. EDMS EDMS 13:41 13:35 LIPASE+LAB ordered. EDMS EDMS Attachments: 04/17 11:38 T-Sheet-- Draft Copy gb Chart Complete MTDD
--- NOTE | 2016-04-19 08:42 | EDDOCDS ---
Physician Documentation [facility] Name: Nancy Ortiz Age: 55 yrs Sex: Female : 1960 Arrival Date: 04/16/2016 Time: 09:50 Bed I4 / M4 Private MD: Tanya Kemp A Disposition: 04/16/16 14:20 Discharged to Home/Self Care. Impression: Acute bronchitis, Disease of pancreas, unspecified - unspecified swelling of the tail, incidental finding on CT scan. - Condition is Stable. - Discharge Instructions: Acute Bronchitis, Metered Dose Inhaler with Spacer. - Prescriptions for Prednisone 20 mg Oral Tablet - take 1 tablet by ORAL route as directed Day 1-3: 3 po, day 4-7: 2 po, day 8-10: 1 po; 20 tablet. Mucinex 600 mg - take 1 tablet by ORAL route 2 times per day; 30 tablet. benzonatate 200 mg Oral Capsule - take 1 capsule by ORAL route 3 times per day As needed; 30 capsule. - Medication Reconciliation, Local Pharmacy Hours, Work Release Form - 2 day form. - Follow up: Tanya Kemp; When: 1 week; Reason: Recheck today's complaints. Follow up: Gloria Butts; When: Call to arrange an appointment; Reason: Further diagnostic work-up. Follow up: Emergency Department; When: As needed; Reason: Fever > 102F, Trouble breathing, Worsening of conditions. - Problem is new. - Symptoms have improved. Historical: - Allergies: no known allergies; - Home Meds: 1. Atenolol Oral once daily 2. Simvastatin Oral once daily 3. Ventolin HFA 90 mcg/actuation Nebulizer HFAA 2 puffs every 4-6 hours prn 4. meloxicam 7.5 mg oral tab prn - PMHx: Arthritis; Asthma; breast cancer; Hypertension; Hypercholesterolemia; - PSHx: breast reconstruction bilateral; infusaport insertion and removal; Colonoscopy; - Social history: Smoking status: Patient states was never smoker of tobacco. No barriers to communication noted, The patient speaks fluent Ivorian, Speaks appropriately for age. - Family history: Not pertinent. - : The pt / caregiver states he / she is not on anticoagulants. Home medication list is obtained from the patient. - Exposure Risk Screening:: None identified. 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 7 in. (170.18 cm) (R); Pain 0/10; 14:35 BP 121 / 62; Pulse 81; Resp 20; Temp 98.4; Pulse Ox 97% on R/A; Pain 0/10; ja5 09:53 Body Mass Index 38.22 (110.68 kg, 170.18 cm) ct3 MDM: 10:44 Financial registration complete. lg 10:54 IV Saline Lock ordered. ar2 10:54 Albuterol-Ipratropium 1 neb Nebulizer every 20 minutes x3 ordered. ar2 10:55 CBC with Diff Ordered. EDMS 10:55 MED Profile Ordered. EDMS 11:49 CT Chest Angio R/O PE Ordered. EDMS 12:30 CBC with Diff Reviewed. ar2 12:30 MED Profile Reviewed. ar2 13:50 MED Profile Reviewed. ar2 13:50 AMYLASE Reviewed. ar2 13:50 LIPASE Reviewed. ar2 13:50 CT Chest Angio R/O PE Reviewed. ar2 14:17 MDI teaching with Spacer ordered. ar2 04/17 11:38 T-Sheet-- Draft Copy was scanned into [employer] and attached to record. gb 11:39 Radiology Report was scanned into [employer] and attached to record. gb Administered Medications: 04/16 11:10 Drug: Albuterol-Ipratropium 1 neb [ipratropium-albuterol 0.5 mg-3 mg(2.5 mg base)/3 mL kt1 nebulization soln (1 neb)] Route: Nebulizer; 11:23 Drug: Albuterol-Ipratropium 1 neb [ipratropium-albuterol 0.5 mg-3 mg(2.5 mg base)/3 mL kt1 nebulization soln (1 neb)] Route: Nebulizer; 11:23 Follow up: Response: Nebulizer completed kt1 Addendum: 04/19/2016 08:34 Radiology Callback: Radiology results faxed to primary care physician/provider. dr danika kemp faxed formal report of cta for fu mlg. 08:40 Radiology Callback: Radiology results faxed to primary care physician/provider. w dr danika kemp. she is aware and requesting i fax to dr [facility] [place]. Signatures: Dispatcher [employer] EDMS Rayray Villarreal MD MD ml Barnhardt, Gloria, Reg Reg gb Rachel Nunez, Reg Reg lg Cory Cornejo RN RN mlb1 Jerod James PA-C PA-C ar2 Maggy Badillo RN RN ja5 Rosalie Salas kt1 The chart was reviewed and I authenticate all verbal orders and agree with the evaluation and treatment provided.Corrections: (The following items were deleted from the chart) 04/16 13:41 13:35 AMYLASE+LAB ordered. EDMS EDMS 13:41 13:35 LIPASE+LAB ordered. EDMS EDMS Attachments: 04/17 11:38 T-Sheet-- Draft Copy gb Chart Complete MTDD
== END 2016-04-16 14:47 | disposition home or self-care (01) ==
LOC: M ED 09:50
DX: J20.9 Acute bronchitis, unspecified (principal); K86.9 Disease of pancreas, unspecified; I10 Essential (primary) hypertension; J45.909 Unspecified asthma, uncomplicated; M19.90 Unspecified osteoarthritis, unspecified site; E78.00 Pure hypercholesterolemia, unspecified; Z85.3 Personal history of malignant neoplasm of breast; Z79.899 Other long term (current) drug therapy
CPT/HCPCS: 36415; 71275; 80048; 82150; 83690; 85025; 94640; 99284; Q9967

== ENCOUNTER → 2016-04-21 | Outpatient (REF) | payer OTHER | LOC: M LAB REF 12:44 | PROVIDERS: ATTEND Internal Medicine Medical Oncology | DX: C50.919 Malignant neoplasm of unspecified site of unspecified female breast (principal) ==

== ENCOUNTER → 2016-05-08 | Outpatient (CLI) | payer OTHER ==
[~2016-05-08] MED LIST changes: +GASTROGRAFIN SOLUTION 30ML (Q9963) As Ordered ONE; +ISOVUE-370 76% 100ML VIAL (Q9967) As Ordered ONE
--- NOTE | 2016-05-08 14:54 | REP ---
CT ABDOMEN AND PELVIS WITHOUT AND WITH IV CONTRAST: WITH ORAL CONTRAST. DEDICATED PANCREATIC PROTOCOL: HISTORY: Abnormality noted in the body and tail of the pancreas on CT pulmonary angiogram from April 16, 2016. Comparison is also made with images from CT study dated August 17, 2013. The patient also has a history of breast carcinoma. Augmentation breast tissue expanders are contraindicated for MRI scanning. CT CONTRAST DOSE: 100 mL of Isovue-370 is administered. Three-phase postcontrast imaging and precontrast imaging are acquired. CT FINDINGS: Preliminary nursing home assistant administrator radiograph is unremarkable. The lung bases are unremarkable. There is no evidence of liver mass lesion on pre- or postcontrast images. The spleen is intact. The gallbladder is partially contracted. The kidneys enhance symmetrically and are morphologically intact. Today's CT study again demonstrates an area of fullness in the tail of the pancreas with peripancreatic streaking. There is some thickening of the adjacent portion of the left adrenal gland. An ill-defined 1.9 cm low density area is seen in this region of the pancreas on arterial and venous phase postcontrast imaging. There is irregularity of the adjacent segment of the splenic artery which appears to be new. There is dilation of the pancreatic duct distal to this with atrophy of the pancreatic parenchyma in the tail. There is edema or infiltration in the peripancreatic fat inferior to this in a 2.5 cm area. No definite adenopathy is seen. There is one peripancreatic lymph node visible measuring only 4-5 mm. The splenic vein is patent, although it may show some irregularity and narrowing as well at the level of the pancreatic body. IMPRESSION: Findings are again felt to be suspicious for a small malignancy of the pancreatic tail obstructing the pancreatic duct and narrowing the splenic vein and artery . There is adjacent peripancreatic mesenteric fat streaking and thickening of the left adrenal gland. Focal pancreatitis is still a possibility. The findings are a change from the 2014 prior exam. Transgastric endoscopic ultrasound and ultrasound-guided needle biopsy could be attempted versus percutaneous CT-guided needle biopsy. Correlation with pancreatic enzymes and tumor markers may be helpful. Signed by Bill Shook MD 05/08/2016 03:27 P
== END ==
LOC: M RAD 09:15
PROVIDERS: ATTEND Nurse Practitioner Family
DX: Z85.3 Personal history of malignant neoplasm of breast (principal)

== ENCOUNTER → 2016-06-26 | Outpatient (REF) | payer OTHER ==
[~2016-06-26] MED LIST changes: -GASTROGRAFIN SOLUTION 30ML (Q9963) As Ordered ONE; -ISOVUE-370 76% 100ML VIAL (Q9967) As Ordered ONE
[2016-06-26 13:15] LABS: INR 1.05
== END ==
LOC: M LAB REF 12:46
PROVIDERS: ATTEND Internal Medicine Medical Oncology
DX: C50.919 Malignant neoplasm of unspecified site of unspecified female breast (principal); C25.9 Malignant neoplasm of pancreas, unspecified

== ENCOUNTER → 2016-07-02 | Outpatient (CLI) | payer OTHER ==
[~2016-07-02] MED LIST changes: +LIDOCAINE W/EPINEPHRINE 1% 20ML VIAL As Ordered ONE; +SODIUM BICARBONATE 8.4% INJ 50MEQ 50 ML VIAL As Ordered ONE; +ceFAZolin 1GM INJ (J0690) As Ordered ONE; +fentaNYL 100 MCG/2 ML INJECTION (J3010) As Ordered ONE
--- NOTE | 2016-07-02 17:40 | REPKIM ---
CLINICAL HISTORY: Pancreatic ca. The referring service has asked a chest [id number] placement for chemotherapy. PROCEDURE PERFORMED: Placement of totally implantable venous access device under combined sonographic and fluoroscopic guidance INTERVENTIONALIST: Janneth Blunt MD CONSENT: The risks, benefits and alternatives to the procedure were explained to the patient and informed written consent was obtained. MEDICATIONS: Local Lidocaine, Ancef 1g IV and Fentanyl 100 mcg IV. Independent trained observer was present during the entire duration for monitoring. EBL: less than 10 mL FLUORO TIME: 0.9 minutes DEVICE USED: [place] [employer]-[place] [employer], Single-Lumen Lot#[id number] PROCEDURE/FINDINGS: The patient was brought to the interventional radiology suite and was positioned supine on the table. Time out procedure was performed. Real time ultrasound was used and permanent image stored. The left IJ vein is patent and compressible. Using ultrasound guidance the internal jugular vein was accessed with a micropuncture needle, after infiltration of the skin and deep tissues with local anesthetic. A peel-away sheath was placed. The catheter tip was inserted via the sheath under controlled respiration. The sheath was removed, and the catheter was flushed with heparinized saline and clamped. Next attention was turned to creation of a subcutaneous pocket for the port along the upper chest. The overlying skin and deep tissues were infiltrated with local anesthetic. A transverse skin incision was made long enough to accommodate the reservoir, and using blunt dissection a subcutaneous pocket was created. A tunnel was created from the pocket to the access site. A clamp was advanced from the pocket incision to the venous access site and used to grasp the free end of the catheter and pull it through to the pocket incision. The catheter was trimmed, attached to the reservoir, and flushed with heparinized saline. The reservoir was inserted into the pocket and secured with 2-0 absorbable sutures. The deep tissue was closed with interrupted 2-0 Vicryl suture. The skin incision was closed with a running subcuticular suture of 4-0 Vicryl. The venotomy incision was closed with 4-0 Vicryl suture. Mastisol and Steri-Strips were applied. The port was then accessed and Heparin (100 units/mL concentration) locked in the port. A sterile dressing was then applied. Post procedure chest spot film radiograph showed the tip of the catheter is at the cavoatrial junction. The patient tolerated the procedure well with no immediate complications. This procedure was performed using ultrasound and fluoroscopy. Dr. Blunt was present. IMPRESSION: 1. The left IJ vein is patent and compressible. 2. Successful placement of left IJ chest port placement as discussed above. The chest [id number]-[id number] is ready for use. cc: Gloria Butts MD [facility]
== END | disposition home or self-care (01) ==
LOC: M IRPRO 12:30
PROVIDERS: ATTEND Internal Medicine Medical Oncology
DX: C25.9 Malignant neoplasm of pancreas, unspecified (principal); C50.919 Malignant neoplasm of unspecified site of unspecified female breast
CPT/HCPCS: 36561; 76937; 77001; C1788; C1894; J0690; J3010

== ENCOUNTER → 2016-07-21 | Outpatient (REF) | payer OTHER ==
[~2016-07-21] MED LIST changes: -LIDOCAINE W/EPINEPHRINE 1% 20ML VIAL As Ordered ONE; -SODIUM BICARBONATE 8.4% INJ 50MEQ 50 ML VIAL As Ordered ONE; -ceFAZolin 1GM INJ (J0690) As Ordered ONE; -fentaNYL 100 MCG/2 ML INJECTION (J3010) As Ordered ONE
== END ==
LOC: M LAB REF 12:45
PROVIDERS: ATTEND Internal Medicine Medical Oncology
DX: C50.919 Malignant neoplasm of unspecified site of unspecified female breast (principal); C25.9 Malignant neoplasm of pancreas, unspecified

== ENCOUNTER → 2016-07-30 | Outpatient (CLI) | payer OTHER ==
[~2016-07-30] MED LIST changes: +ATEN50TA2 PO; +GASTROGRAFIN SOLUTION 30ML (Q9963) As Ordered ONE; +ISOVUE-370 76% 100ML VIAL (Q9967) As Ordered ONE; +MELO7.5T6 PO; +PROC5TA PO; +VITA50003 PO
--- NOTE | 2016-07-30 15:18 | REP ---
Clinical: Pancreatic carcinoma with increasing liver function tests. Technique: Axial contrast enhanced images from the lung bases to the mid iliac bones using 100 ml Isovue 370 intravenous contrast material along with precontrast and delayed images as well as coronal and sagittal re-formations. Comparison: 05/08/2016. Findings: Extensive peripancreatic inflammatory stranding with heterogeneous appearance to the pancreatic parenchyma and increased adjacent soft tissue causing loss of surrounding fat planes and presumed infiltration in the region of the danna hepatis involving the pancreatic head/uncinate process adjacent stomach/duodenum and liver. There also appears to be a heterogeneous somewhat hypodense lesion involving the distal pancreatic body/tail with what may be a and adjacent metastatic nodule or lymph node currently measuring 2.7 x 2.0 cm and previously measuring 2.1 x 1.5 cm (image 34). The significant loss of tissue planes in the region of the danna hepatis appears to cause increased elements of biliary obstruction increased intrahepatic biliary ductal dilatation to the right and left lobes. The gallbladder is again collapsed. The liver is without discrete focal hepatic lesion. The spleen, right adrenal gland and kidneys appear normal. The left adrenal gland appears mildly enlarged and similar to prior examination. The visualized small and large bowel is without obstruction or acute inflammatory process. Colonic diverticula are suggested. No ascites. No free air. Scattered retroperitoneal and mesenteric lymph nodes are nonspecific measuring up to approximately 9 mm short axis diameter. Visualized abdominal aorta without aneurysm or dissection. Visualized musculoskeletal structures demonstrate age-related changes without focal osseous abnormality. Lung bases demonstrate left basilar atelectasis. Impression: 1. Increasing ill-defined carmen pancreatic inflammatory changes and suspected soft tissue in the region of the pancreatic head as well as distal body/tail as described above which causes increased intrahepatic biliary ductal dilatation. Soft tissue mass versus lymph node anterior to the pancreatic distal body/tail pathology increased from prior examination. 2. No discrete focal hepatic lesions are identified. 3. Left lower lobe atelectasis. Signed by Олег Greenberg MD 07/30/2016 03:09 P
== END ==
LOC: M RAD 13:07
PROVIDERS: ATTEND Internal Medicine Medical Oncology
DX: C25.9 Malignant neoplasm of pancreas, unspecified (principal); R94.5 Abnormal results of liver function studies; J98.11 Atelectasis

== ENCOUNTER → 2016-08-11 | Day surgery (SDC) | payer OTHER ==
[~2016-08-11] MED LIST changes: -GASTROGRAFIN SOLUTION 30ML (Q9963) As Ordered ONE; +GLYCOPYRROLATE INJ 0.2 MG/ML 2 ML VIAL As Ordered ONE; +HYDROmorphone HCL 1 MG/ML SYRINGE (J1170) IV PRN; +ISOVUE-300 61% 50ML VIAL (Q9967) As Ordered ONE; -ISOVUE-370 76% 100ML VIAL (Q9967) As Ordered ONE; +LIDOCAINE 2% INJ 100 MG/5 ML SDV (FOR ANES.) As Ordered ONE; +LR 1,000 ML IV ONE; +LR 1,000 ML IV SCH; +MEPERIDINE INJ 25 MG/ML VIAL (J2175) IV PRN; +METOCLOPRAMIDE INJ 10MG/2ML VIAL (J2765) As Ordered ONE; +METOCLOPRAMIDE INJ 10MG/2ML VIAL (J2765) IV PRN; +MIDAZOLAM INJ 2 MG/2 ML VIAL (J2250) As Ordered ONE; +NEOSTIGMINE 1MG/ML 5 ML SYRINGE (J2710) As Ordered ONE; +ONDANSETRON 4MG/2ML VIAL (J2405) As Ordered ONE; +ONDANSETRON 4MG/2ML VIAL (J2405) IV PRN; +PROPOFOL 200 MG/20 ML VIAL As Ordered ONE; +ROCURONIUM BROMIDE 50 MG/5 ML VIAL As Ordered ONE; +dexameTHASONE 4 MG/ML 1ML VIAL (J1100) As Ordered ONE; +fentaNYL 100 MCG/2 ML INJECTION (J3010) IV PRN; +fentaNYL 250 MCG/5 ML INJECTION (J3010) As Ordered ONE
--- NOTE | 2016-08-11 18:24 | ROOR ---
Patient Name: Nancy Ortiz Procedure Date: 08/11/2016 4:16 PM Date of : 1960 Age: 55 Room: [facility] Gender: Female Note Status: Finalized Procedure: ERCP Indications: Biliary dilation on Computed Tomogram Scan, Jaundice, Malignant tumor of the head of pancreas, Malignant tumor of the body of pancreas Providers: Chris BABIN MD Referring MD: Tanya Kemp MD, Gloria DONATO MD Requesting Provider: Medicines: General Anesthesia Complications: No immediate complications. Procedure: Pre-Anesthesia Assessment: - The heart rate, respiratory rate, oxygen saturations, blood pressure, adequacy of pulmonary ventilation, and response to care were monitored throughout the procedure. The Duodenoscope was introduced through the mouth, and advanced to the duodenum and used to inject contrast into the bile duct. The ERCP was accomplished without difficulty. The patient tolerated the procedure well. Findings: The referral specialist film was normal. The esophagus was successfully intubated under direct vision without detailed examination of the pharynx, larynx, and associated structures, and upper GI tract. The upper GI tract was grossly normal. The major papilla was bulging. The scope was passed under direct vision through the upper GI tract. Extrinsic impression on the duodenum was found in the first portion of the duodenum. A moderate extrinsic deformity was found in the first portion of the duodenum. An acquired extrinsic moderate stenosis was found in the first portion of the duodenum and was traversed. A straight Roadrunner wire was passed into the biliary tree. The short-nosed traction sphincterotome was passed over the guidewire and the bile duct was then deeply cannulated. Contrast was injected. I personally interpreted the bile duct images. Ductal flow of contrast was adequate. Image quality was adequate. Contrast extended to the entire biliary tree. The lower third of the main bile duct and common hepatic duct contained two moderate stenoses. the distal stricture is eccentric/mass like is moderate, the proximal/common hepatic duct stricture is concentric and severe. The main bile duct was mildly dilated and diffusely dilated. The largest diameter was 10 mm. One 10 mm by 6 cm covered metal stent was placed into the common bile duct. Bile flowed through the stent. The stent was in good position. Impression: - Duodenal extrinsic compression and stenosis between first and second portions of the duodenum. - Two moderate biliary strictures are found: the distal stricture is an eccentric/mass like and is moderate, the common hepatic duct stricture is concentric and severe. The strictures are malignant appearing. - One covered metal wall stent (10 mm x 6 cm) was placed into the common bile duct crossing both strictures. Recommendation: - Observe patient's clinical course. - Follow up with your oncologist as scheduled. - Return to my office PRN. - The patient will be observed post-procedure, until all discharge criteria are met. - Discharge patient to home. - Resume regular diet. Chris Babin MD Chris BABIN MD 08/11/2016 6:23:57 PM This report has been signed electronically. Number of Addenda: 0 Note Initiated On: 08/11/2016 4:16 PM Estimated Blood Loss: Estimated blood loss: none.
[2016-08-11 20:05] VITALS: BP 140/63
--- NOTE | 2016-08-12 05:50 | REP ---
Clinical: History of pancreatic cancer. Technique: Real time intraoperative fluoroscopic imaging. Findings: Multiple images from ERCP examination demonstrates areas of narrowing through the distal common bile duct along with associated common bile duct and intrahepatic biliary dilatation. The cystic duct and gallbladder appear normal. Final images demonstrate the patient to be status post CBD stenting further area of narrowing. Total fluoroscopic time 53 seconds. Impression: Status post CBD stenting. Signed by Олег Greenberg MD 08/12/2016 05:42 A
== END | disposition home or self-care (01) ==
LOC: M SDC 14:23
PROVIDERS: ATTEND Internal Medicine Gastroenterology
DX: K83.8 Other specified diseases of biliary tract (principal); R17 Unspecified jaundice; K83.1 Obstruction of bile duct; K31.89 Other diseases of stomach and duodenum; K31.5 Obstruction of duodenum; C25.0 Malignant neoplasm of head of pancreas; C25.1 Malignant neoplasm of body of pancreas; I10 Essential (primary) hypertension; E78.5 Hyperlipidemia, unspecified; J45.909 Unspecified asthma, uncomplicated; E66.9 Obesity, unspecified; C50.919 Malignant neoplasm of unspecified site of unspecified female breast; E78.00 Pure hypercholesterolemia, unspecified; Z79.899 Other long term (current) drug therapy
CPT/HCPCS: 43274; 74330; J1100; J2250; J2405; J2710; J2765; J3010; Q9967

== ENCOUNTER → 2016-08-18 | Outpatient (REF) | payer OTHER ==
[~2016-08-18] MED LIST changes: -GLYCOPYRROLATE INJ 0.2 MG/ML 2 ML VIAL As Ordered ONE; -HYDROmorphone HCL 1 MG/ML SYRINGE (J1170) IV PRN; -ISOVUE-300 61% 50ML VIAL (Q9967) As Ordered ONE; -LIDOCAINE 2% INJ 100 MG/5 ML SDV (FOR ANES.) As Ordered ONE; -LR 1,000 ML IV ONE; -LR 1,000 ML IV SCH; -MEPERIDINE INJ 25 MG/ML VIAL (J2175) IV PRN; -METOCLOPRAMIDE INJ 10MG/2ML VIAL (J2765) As Ordered ONE; -METOCLOPRAMIDE INJ 10MG/2ML VIAL (J2765) IV PRN; -MIDAZOLAM INJ 2 MG/2 ML VIAL (J2250) As Ordered ONE; -NEOSTIGMINE 1MG/ML 5 ML SYRINGE (J2710) As Ordered ONE; -ONDANSETRON 4MG/2ML VIAL (J2405) As Ordered ONE; -ONDANSETRON 4MG/2ML VIAL (J2405) IV PRN; -PROPOFOL 200 MG/20 ML VIAL As Ordered ONE; -ROCURONIUM BROMIDE 50 MG/5 ML VIAL As Ordered ONE; -dexameTHASONE 4 MG/ML 1ML VIAL (J1100) As Ordered ONE; -fentaNYL 100 MCG/2 ML INJECTION (J3010) IV PRN; -fentaNYL 250 MCG/5 ML INJECTION (J3010) As Ordered ONE
== END ==
LOC: M LAB REF 13:49
PROVIDERS: ATTEND Internal Medicine Medical Oncology
DX: C50.919 Malignant neoplasm of unspecified site of unspecified female breast (principal); C25.9 Malignant neoplasm of pancreas, unspecified

== ENCOUNTER → 2016-09-01 | Outpatient (REF) | payer OTHER | LOC: M LAB REF 16:33 | PROVIDERS: ATTEND Internal Medicine Medical Oncology | DX: C50.919 Malignant neoplasm of unspecified site of unspecified female breast (principal); C25.9 Malignant neoplasm of pancreas, unspecified ==

== ENCOUNTER → 2016-09-29 | Outpatient (REF) | payer OTHER ==
[~2016-09-29] MED LIST changes: -MELO7.5T6 PO; +MELO7.5T7 PO; +VITA1CAP40 PO; -VITA50003 PO
== END ==
LOC: M LAB REF 15:10
PROVIDERS: ATTEND Internal Medicine Medical Oncology
DX: C50.919 Malignant neoplasm of unspecified site of unspecified female breast (principal); C25.9 Malignant neoplasm of pancreas, unspecified

== ENCOUNTER → 2016-10-27 | Outpatient (REF) | payer OTHER | LOC: M LAB REF 13:57 | PROVIDERS: ATTEND Internal Medicine Medical Oncology | DX: C25.9 Malignant neoplasm of pancreas, unspecified (principal); C50.919 Malignant neoplasm of unspecified site of unspecified female breast ==

== ENCOUNTER → 2016-10-29 | Outpatient (CLI) | payer OTHER ==
[~2016-10-29] MED LIST changes: +GASTROGRAFIN SOLUTION 30ML (Q9963) As Ordered ONE; +ISOVUE-370 76% 100ML VIAL (Q9967) As Ordered ONE
--- NOTE | 2016-10-29 13:28 | REP ---
CT chest with IV contrast: History: Metastatic pancreatic carcinoma. Comparison CT study is from April 16, 2016. CT contrast dose: 100 ml of Isovue [address] findings: There is good opacification of the pulmonary arterial tree and there is no CT evidence to suggest pulmonary embolus. Thoracic aorta enhances homogeneously and is normal in caliber and course. No hilar or mediastinal mass or adenopathy is observed. No pleural or pericardial effusion is seen. The patient is status post bilateral mastectomy and augmentation implants. Lung window settings show no evidence of pulmonary nodule or mass lesion. There is some plate-like atelectasis in the left lower lobe. No bony destructive lesion is seen. Impression: No evidence of intrathoracic metastasis. Signed by Bill Shook MD 10/29/2016 03:23 P
--- NOTE | 2016-10-29 15:00 | REP ---
CT ABDOMEN PELVIS WITHOUT AND WITH IV CONTRAST: With oral contrast. HISTORY: Metastatic pancreatic carcinoma. Check response to chemotherapy. Comparison CT study is from Jul [address] CONTRAST DOSE: 100 mL of Isovue [address] FINDINGS: In the interval since the prior CT study, the patient has undergone a wall stent placement in the common bile duct and accompanying pneumobilia is seen. 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 Some fullness in the pancreatic tail persists with dilation of the distal pancreatic duct. There is a peripancreatic soft tissue mass or lymph node adjacent to the pancreatic tail. This has decreased in size. It measured 2.7 x 2.1 cm on July 26, 2016 prior exam. Today these dimensions are 1.8 x 1.1 cm. Fullness of the pancreatic tail is slightly decreased. There is still evidence of narrowing of the splenic vein and artery. Fullness is seen in the pancreatic head surrounding the common bile duct stent. No new adenopathy is seen. No new focal liver lesion is appreciated. Normal appendix is seen. Small and large bowel loops are unremarkable. There are calcified fibroid changes in the uterus. No bony destructive lesion is appreciated. IMPRESSION: Status post common bile duct stent placement with pneumobilia. Fullness of pancreatic head and tail. The pancreatic tail fullness and a peripancreatic vamshi mass adjacent to the pancreatic tail are improved compared to July 30, 2016. Signed by Bill Shook MD 10/29/2016 03:27 P
== END ==
LOC: M RAD 08:35
PROVIDERS: ATTEND Internal Medicine Medical Oncology
DX: C78.89 Secondary malignant neoplasm of other digestive organs (principal); Z92.21 Personal history of antineoplastic chemotherapy
CPT/HCPCS: 71260; 74178; Q9963; Q9967

== ENCOUNTER → 2016-11-24 | Outpatient (REF) | payer OTHER ==
[~2016-11-24] MED LIST changes: -GASTROGRAFIN SOLUTION 30ML (Q9963) As Ordered ONE; -ISOVUE-370 76% 100ML VIAL (Q9967) As Ordered ONE
== END ==
LOC: M LAB REF 11:00
PROVIDERS: ATTEND Internal Medicine Medical Oncology
DX: C25.9 Malignant neoplasm of pancreas, unspecified (principal)

== ENCOUNTER 2016-11-25 10:16 | Outpatient (CLI) | payer OTHER ==
[~2016-11-25] VITALS: Ht 171.4 cm; Wt 97.3 kg
[~2016-11-25 10:16] MED LIST changes: +ACETAMINOPHEN TAB 650MG DOSE (2X325MG) PO SCH; +diphenhydrAMINE 25 MG CAP PO SCH
[2016-11-25] MEDS ORDERED: SODIUM CHLORIDE 0.9% INJ 10 ML SYR IV PRN (18:00)
[2016-11-26] MEDS ORDERED: SODIUM CHLORIDE 0.9% INJ 10 ML SYR IV SCH (09:00)
== END 2016-11-25 18:30 | disposition home or self-care (01) ==
LOC: M OPCLI5PR 10:16 → M MS5PR 10:21 → M OPCLI5PR 18:30
PROVIDERS: ATTEND Internal Medicine Medical Oncology
DX: D64.9 Anemia, unspecified (principal); C25.9 Malignant neoplasm of pancreas, unspecified; C78.89 Secondary malignant neoplasm of other digestive organs; C50.919 Malignant neoplasm of unspecified site of unspecified female breast; Z79.899 Other long term (current) drug therapy
CPT/HCPCS: 36430; P9016